=== PATIENT | female | born 1960 | race African-American/Black ===

== ENCOUNTER 2019-10-18 14:21 | Inpatient (IN) | payer OTHER ==
[~2019-10-18] VITALS: Ht 167.6 cm; Wt 78.5 kg
[2019-10-18 17:10] VITALS: BP 133/76
--- NOTE | 2019-10-18 19:39 | NUR ---
58 yo female admitted via EMS after transfer from [facility]. Alert and orientated to person and place, not to time. When asked why she was here during admission intake she stated "for breast implants." She repeated this statement twice. Able to articulate but speech slightly slurred. Calm and cooperative. Able to ambulate without difficulty with regular gait. Denies SI/HI. Breath sounds clear t/o, bilaterally equal. Reg HR auscultated. Color pink with brisk capillary refill and palpable peripheral pulses. Active bowel sounds over soft, rounded abdomen. States last BM was yesterday. Voids independently.Scratches and several bruises on forearms. States they are from her dogs jumping on her. Hortense through admission she held her hands up to her forehead and stated she had a HECTOR. No other s/o of distress or change in affect. States pain is a 9/10. Tylenol given PO per prn order. Continued admission intake without s/o distress. Dr. Urbina and Dr Garnett here, aware of pt admission.
[2019-10-18 20:23] VITALS: BP 106/82
--- NOTE | 2019-10-19 03:52 | NUR ---
patient aox2 forgetful and confused. patient comes to the nurses station multiple times demanding for cigarette.patient reeducated that this is a hospital and no smoking is around, patient offered a smoking patch but patient declines. patient is easily redirectable. patient calm and cooperative with meds and care. patient has a flat affect, poor eye contact, poor grooming and hygiene. patient refused to take a shower after several attempt. patient encouraged fluids.patient in bed asleep at this time breathing regular and unlaboured.
--- NOTE | 2019-10-19 07:00 | NUR ---
Assumed care of patient this am. Patient calm, content and pleasant. Patient ambulates without assistance. Patient takes medications whole with fluids. Patient denies pain. Patient concerned about her phone and shoes. Patients assessment reveals clear breath sounds, active bowel sounds, and s1 s2 heard with auscultation.
--- NOTE | 2019-10-19 10:51 | NUR ---
REECE called Chalo pt's SO [phone], another friend answered the cellphone, this phone number is the pt's cell phone in their possession. She was unable to provide Chalo's number but did take my phone number for Chalo to call back to schedule the family meeting. Sw met with pt to complete the intake assessment. pt believes she is on a trip or a cruise and needs constant redirection and reminders. Pt also signed for her records to be sent from [facility].
--- NOTE | 2019-10-19 12:07 | NUR ---
John called and spoke fallon Isabel and he is unable to drive this far so is willing to help in family meeting via telephone on 10/25 at 2pm. His number [phone].
--- NOTE | 2019-10-19 14:17 | NUR ---
PT OBSERVED AMBULATING AROUND THE H UNIT WITHOUT DIFFICULTY. RN REPORTS STEADY GAIT SINCE ADMISSION. PT APPEARS TO BE MOBILIZING AT BASELINE AND DR. SKELTON PLANS TO D/C P.T. ORDER AT THIS TIME.
[2019-10-19 19:32] VITALS: BP 103/58
--- NOTE | 2019-10-20 01:22 | NUR ---
ASSUMED CARE OF PATIENT AT APPROXIMATELY 1915 ON 10/19/19. AT THE BEGGINING OF SHIFT PATIENT IS ALERT AND ORIENTED X3, SHE WAS CALM AND COOPERATIVE, WALKS WITH A STEADY GAIT APPEARS WITH A BRIGHT AFFECT. AT APPROXIMATELY 2245 PATIENT OBSERVED IN HALLWAYS KNOCKING ON DOORS, STAFF REDIRECTED PATIENT BACK TO HER ROOM. AT APPROXIMATELY 0000 PATIENT OBSERVED WALKING IN THE HALLWAY AND C/O HER DOOR BEING LOCKED. NURSING STAFF ASKED WHY PATIENT IS SHUTTING THE DOOR SHE STATED 'BECAUSE THEY ARE SHOOTING ROUNDS.' SHE APPEARS WITH A PERPLEXED AFFECT AT THIS TIME. AT APPROXIMATELY 0050 PATIENT AGAIN IN HALLWAY MAKING NON SENSICAL STATEMENTS ABOUT NEEDING 'LEO TO COME PICK ME UP, THE BAR IS STILL OPEN.' SHE DENIES SI HI AND HALLUCINATIONS AND DOES NOT APPEAR TO BE RESPONDING TO INTERNAL STIMULI. NURSING WILL MAINTAIN Q12 CHECKS TO ENSURE SAFETY AT ALL TIMES.
--- NOTE | 2019-10-20 08:10 | NUR ---
PT UP WALKING AD REESE WITH STEADY GAIT. PT EATING BREAKFAST. PT DENIES ANY ISSUES OR PAIN. PT LUNGS CLEAR. PT HAS SOME SCRATCHES TO ARMS BILATERALLY. PT STATED HER SKIN IS DRY.
--- NOTE | 2019-10-20 08:22 | NUR ---
PT COMPLIANT WITH MEDICATION.
[2019-10-20 09:09] VITALS: BP 131/89
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
--- NOTE | 2019-10-20 16:45 | NUR ---
PT WANTING TO GO HOME AND TAKE HER DOGS OUT. PT STATED SHE IS GOING HOME AND WANTING TO KNOW HOW TO GET OUT OF HER. PT DIDN'T WANT TO EAT DINNER DUE TO NEEDING TO LEAVE.
--- NOTE | 2019-10-20 17:45 | NUR ---
PT SITTING BY WEST DOOR AND CHECKING DOOR PERIODICALLY.
--- NOTE | 2019-10-20 23:37 | NUR ---
Care assumed of patient at 1915: Patient pacing the halls at start of shift. Patient attempting to open all doors on the unit including exit doors. Patient states that her mother is in a silver car in the parking lot and she needs to go see her. Patient not re-directable at all. Patient decided to sit on the floor next to the exit doors and declined to move. Staff diverted to other exit doors and patient was able to sit where she was comfortable. Patient worried about how she is going to pay for the cup of water provided and medications. Patient was resistive but did take the medication. Patient alert and oriented to person only. Patient curious as to why an RN has decided to work at [facility], which is where she believes she is. Patient re-directed to being in the hospital which she does not believe is accurate. Patient observed scratching bilateral upper extremities. Appears that old scars and newer scabs present. Patient states that she is itching because her skin is dry. Offered lotion which she accepted and applied. Patient declined HS snack. Poor eye contact, suspicious look, flat affect, easily irritable. Denied SI/HI/AH/VH. Denies anxiety or depression. Obvious delusional behaviors of reporting that her mother just left and was returning momentarily to pick her up. Approximately 45 minutes after taking medication, patient approached nurse asking where her room was located. Patient happy, smiling, grateful. Stated her bed was comfortable and that she "loved her new room". Patient then came to the dayroom to watch TV, observed interacting with another peer, looking at a magazine. Patient was able to remember location of her room and retired to bed independently with no further issue to report.
[2019-10-21 09:14] VITALS: BP 111/84
--- NOTE | 2019-10-21 18:26 | NUR ---
States she is sleepy this am. No s/o distress. Alert and orientated to person. Denies pain. Denies SI/HI. Ambulates with steady gait. Breath sounds clear t/o, bilaterally equal. Reg HR auscultated. Color pink with brisk capillary refill. Active bowel sounds over soft, rounded abdomen. Voiding independently. Healing scratches over forearms. Compliant with meds and cares. 1830 One episode late this afternoon where she was exit seeking, pushing on outer doors to get out. Other than that she was calm and cooperative sitting in dining room or sleeping in room. No s/o distress.
[2019-10-21 20:42] VITALS: BP 101/63
--- NOTE | 2019-10-21 23:28 | NUR ---
Care assumed of patient at 1915: Patient seated in dayroom with other peers at start of shift. Patient interacting well with staff and peers. Appears to be watching the TV and writing. Patient alert and oriented to person only. Patient continues to believe that we are staying in a [employer] store. Patient able to be re-directed when she states "oh, that's right, I knew that". However, when asked 5 minutes later, she forgets the accurate answer. Patient calm, pleasant and cooperative. No exit seeking behaviors observed. Patient was able to remember location of her room and bathroom. Patient took HS medication whole without difficulty. Ate 100% HS snack. Continues to have perplexed look when speaking with others. Denies SI/HI/AH/VH. No s/s of delusional or paranoia behaviors. No aggression or agitation observed. Patient was able to retire to her bed, independently, and complete HS ADLs independently.
[2019-10-22 08:31] VITALS: BP 117/79
--- NOTE | 2019-10-22 18:13 | NUR ---
Alert and orientated to person and place. Denies pain/SI/HI. Concerned as to where her belongings are and specifically asks for fan and clothes. Breath sounds clear t/o, bilaterally equal. Reg HR auscultated. Color pink with brisk capillary refill. Voiding independently. Active bowel sounds over soft, rounded abdomen. Healing scratches to forearms. 1800 Spent most of day in dining room with peers or resting in bed. No s/o distress. Received phone call from [facility] late in afternoon.
[2019-10-22 19:49] VITALS: BP 141/82
--- NOTE | 2019-10-23 03:50 | NUR ---
Pt. did spend most of the evening hours in the dining room watching television. She offers no c/o pain or discomfort. No behavioral issues observed this shift. Pt. rested quietly in her room most of the night.
[2019-10-23 08:19] VITALS: BP 117/77
--- NOTE | 2019-10-23 09:59 | NUR ---
0642 REPORT RECEIVED FROM OVERNIGHT SHIFT, PATIENT UP AND SITTING IN DAY ROOM. PATIENT ATE BREAKFAST AND TOOK MEDICATION WITHOUT INCIDENCE. PATIENT PARTICIPATING IN GROUPS, SITTING QUIET AND CALM. WILL CONTINUE TO MONITOR PATIENT FOR BEHAVIORS AND SAFETY.
--- NOTE | 2019-10-23 15:12 | NUR ---
Sw spent 1;1 with this pt during the group time. Pt was eager to talk about her support system and how she wants to go home. She is still moderately unaware of her deficits . She was pleasant and eager to make " chit chat".
[2019-10-23 19:42] VITALS: BP 120/67
--- NOTE | 2019-10-24 04:32 | NUR ---
ASSUMED CARE OF PATIENT AT 1915, ON 10/23/19. SHE WAS IN HER ROOM WITH EYES CLOSED THAT SPONTANEOUSLY OPENED TO THIS NURSES VOICE. SHE APPEARS WITH A BRIGHT AFFECT, CALM AND COOPERATIVE, TOOK MEDICATION WITH NO ISSUES. SHE STATES 'WELL IM FEELING REALLY GOOD THIS EVENING.' SHE DENIED SI HI AND HALLUCINATIONS BUT DOES APPEAR TO STRUGGLE FINDING THE CORRECT WORDS TO USE IN SENTENCES. SHE DENIES MEDICAL CONCERNS WITH NO S/S OF DISTRESS. NURSING WILL MAINTAIN ALL PRECAUTIONS TO ENSURE SAFETY AT ALL TIMES.
[2019-10-24 08:33] VITALS: BP 118/64
--- NOTE | 2019-10-24 09:32 | NUR ---
PT SLEEPING THIS AM. PT DIDN'T WANT TO EAT BREAKFAST. PT STATED SHE DIDN'T WANT ANY. GAVE PT ORANGE JUICE WITH MEDS. PT COMPLIANT WITH MEDS. PT CHEERFUL AND HAPPY.
--- NOTE | 2019-10-24 12:00 | NUR ---
PT OUT TO EAT FOR LUNCH GETTING A CHANCE TO VISIT WITH STAFF AND
--- NOTE | 2019-10-24 18:38 | NUR ---
ADM ZYPREXIA 5MG PO FOR INCREASED ANXIETY. PT REACHING OVER NURSES DOOR AND OPENING THE DOOR. PT GOING INTO OTHERS ROOMS AND TAKING A YELLOW SHIRT AND WAS PUTTING IT ON TOP OF HER YELLOW SHIRT. PT VERBALY AGGRESSIVE TOWARD STAFF.
[2019-10-24 20:10] VITALS: BP 124/79
--- NOTE | 2019-10-25 04:25 | NUR ---
1909-Report received from day shift nurse and care assumed. She had a prn Zyprexa 5 mg. po at 1838 prior to shift report for restlessness, checking exit doors repeatedly and it was effective as she stayed in the day room and hallway and sat down in the day area/less restless. Cindi asked if she could 'time-out' when she overheard staff talking about timing out. She had good eye contact, was medication compliant at medicine time, asked if she could 'pay now', could not locate her room by herself, had a flat affect, was soft-spoken and not aggressive nor irritable. She did not sleep restfully tonite, off and on in her room saying she was straightening her covers. She was noticably confused with restlessness and came out of her room at 0400 looking for her checkbook, then went in another peers room instead of hers. She was given Olanzapine 5 mg. po at 0425 for anxiety, and will monitor for effectiveness.
[2019-10-25 07:32] VITALS: BP 123/93
--- NOTE | 2019-10-25 11:03 | NUR ---
REECE team received a vm from [facility] stating that he would be at the hospital at 1200. REECE called him back and reminded him that that the meeting is not until 1400. He said he wanted to visit pt also. REECE gave him the visiting hours. He said he will be present at 1400. REECE team will continue to follow pt during her stay.
--- NOTE | 2019-10-25 13:15 | NUR ---
CONTINUITY OF CARE OF PATIENT THIS MORNING. SEARCHED FOR PATIENT FOR BREAKFAST AND TO ADMINISTER MEDICATIONS. DISCOVERED HER STANDING IN HER BATHROOM IN THE DARK. UNABLE TO EXPLAIN WHY WHEN QUESTIONED. PATIENT ESCORTED TO DINING PHELAN AND MEDICATIONS ADMINISTERED. TAKEN WELL - NEEDED ENCOURAGEMENT AND DIRECTION WITH BREAKFAST. NO PARTICIPATION IN GROUPS - VERY UNFOCUSED - ALERT BASICALLY TO ONESELF. NEEDS CONSTANT REDIRECTION - WANDERS ABOUT - VERY CONFUSED. CALM AND REDIRECTABLE. ISOLATIVE TO ONESELF - DOES NOT MINGLE IN [place]IE[place]. VERY LITTLE RETENTION OF WHAT IS CONVEYED TO HER.
--- NOTE | 2019-10-25 15:39 | NUR ---
SW and psych doctor met with Fatou Isabel (Chalo's mother), and Mike (pt's son via phone) for a family meeting. They psych doctor discussed pt's cognitive issues and that she lobito suffers from dementia; she is in need of placement. Pt was asked if she knew what a DPOA is. She was too overwhelmed by the news that she needs placement to respond. SW or psych doctor will ask pt tomorrow and screen her for the possibility of her signing DPOA paperwork. SW team will continue to follow pt during her stay on the unit.
--- NOTE | 2019-10-25 16:03 | NUR ---
Pt stated she would like to apply for Medicaid. SW sent an email to [employer] to schedule a screening. SW team will continue to follow pt during her stay on this unit.
[2019-10-25 19:26] VITALS: BP 106/77
--- NOTE | 2019-10-26 06:41 | NUR ---
1909-Report received from day shift nurse and care assumed. She was very restless, pacing fast with confusion, checking doors and nearly pressed the alarm. At 2039 she was given Olanzapine 5 mg. po for anxiety, she was compliant with her HS meds. also. the prn was ineffective. She was verbally hostile at times with her confusion and continued very restless and pacing the hallway. She was redirectable mostly but had insomnia. At 149 the oncall [employer]ADES WORKER was called and Trazodone 50 mg. po x 1 was given and it was effective. She fell asleep soon. Total sleep 3.2 hours thus far.
--- NOTE | 2019-10-26 10:58 | NUR ---
REECE spoke with pt and asked if she remembered the conversation from yesterday. REECE explained to pt that they talked about DPOA. REECE again explained what that meant, and then asked pt to tell her what it means to her. Her response was "someone who can make decisions when I can't." REECE then asked her 4 orientation questions, and she was only oriented to who she was and where she was; she does not know the date, the season we are in, or the current president. REECE will provided an update to the psych doctor.
--- NOTE | 2019-10-26 14:29 | NUR ---
REECE talked with the psych doctor about her findings and he said that guardianship is the next step. REECE contacted pt's son Rob and provided an update he said that he needs to call REECE back because he was with clients at the moment. SW team will continue to follow pt during her stay.
--- NOTE | 2019-10-26 19:30 | NUR ---
Sleepy today. Needed encouragement to get up and go to breakfast and dinner today. Spent approximately 50% of day resting in bed. Rest of time she was in dayroom with peers. Denies SI/HI/pain. Orientated to person and place only. Calm, cooperative and compliant with meds. Breath sounds clear t/o, bilaterally equal. Reg HR auscultated. Color pink with brisk capillary refill. Voids independently. No documented BM since 10/20. When asked, she states that she has not had a BM in 4-5 days. Active bowel sounds over large, rounded abdomen. Ambulates t/o unit without difficulty. 1600 Dr. Garnett notified of lack of BM. Mag Citrate ordered PO. Drank approximately .25-.5 of bottle without any results as of 1829. Refused remainder. No s/o distress. Will obtain labs in AM per order.
[2019-10-26 19:38] VITALS: BP 109/63
--- NOTE | 2019-10-27 03:17 | NUR ---
ASSUMED CARE OF PATIENT ON 10/26/19 AT 1915. PATIENT IS IN ROOM UPON ONE TO ONE ASSESSMENT. SHE APPEARED WITH A BRIGHT AFFECT, ASKED HOW MY DAY WAS GOING AND WAS CALM AND COOPERATIVE. SHE DOES REPORT FEELING A 'LITTLE DEPRESSED' BUT NEITHER AFFECT AND MOOD APPEAR CONGRUENT. SHE DENIES FEELINGS OF SI HI AND HALLUCINATIONS AT THIS TIME. SHE DID NOT REPORT ANY MEDICAL CONCERNS WITH NO S/S OF DISTRESS. NURSING WILL MAINTAIN ALL PRECAUTIONS TO ENSURE SAFETY AT ALL TIMES.
[2019-10-27 06:48] LABS: HEMATOCRIT 38.6 % (37.0-47.0); HEMOGLOBIN 12.9 gm/dL (12.0-15.0); MCHC 33.4 g/dL (28.0-37.0); MCV 89.8 fL (80.0-100.0); RBC 4.31 mil/uL (4.20-5.00); RDW 13.9 % (10.5-14.5); WBC 4.7 thou/uL (4.0-11.0)
[2019-10-27 06:51] LABS: CALCIUM 9.7 mg/dL (8.5-10.1); CREATININE 0.6 mg/dL (0.6-1.0); MAGNESIUM 2.5 mg/dL (1.8-2.4); POTASSIUM 4.1 mmol/L (3.5-5.1)
[2019-10-27 08:00] VITALS: BP 135/72
--- NOTE | 2019-10-27 10:24 | NUR ---
Pt is not achieving current goal of attending two RT groups per day until discharge to increase concentration and communication skills. The modified New goal plan is to attend one RT group per day until discharge to increase reality orientation and activity tolerance.
[2019-10-27 13:14] VITALS: BP 135/72
--- NOTE | 2019-10-27 16:25 | NUR ---
Yesterday Tonya, pt's daughter, contacted REECE and requested an update. REECE explained that she has to get permission from her mother to do so. REECE obtained the permission to tell Tonya what is going on verbally from pt. REECE provided Tonya and updated and explained guardianship will be needed due to pt not having the ability to sign DPOA paperwork. Tonya said she has already been talking to a patient access director. She does not believe her brother Rob would be a good option for guardian because she states pt lives down the street from him and he never visits. REECE explained that the psych doctor may have to ask the state to step in if no one wants to take responsibility for pt. Tonya said she does, she is concerned about her financial responsibility. REECE advised she speak with her patient access director. She said she will do so and get back with REECE by Friday noon. REECE provided this update to the psych doctor. SW team will continue to follow pt during her stay on this unit.
--- NOTE | 2019-10-27 16:38 | NUR ---
)700 Assumed care of the pateitn. Pleasant and cooperative. Able to walk around the unit. Forgets her rooms sometimes. Reorientation done. Compliant with her meals and medications. Will continue to monitor.
[2019-10-27 19:22] VITALS: BP 118/73
--- NOTE | 2019-10-28 02:26 | NUR ---
ASSUMED CARE FROM DAY SHIFT, PT SITTING AT TABLE IN DAYROOM, CALM COOPERATIVE , ANSWERING QUESTION WITHOUT CONFUSION OR AGITATION. HS MEDICATION TAKEN WITH SNACK, TOLERATED WELL. PT THEN WALKED TO ROOM GAIT STAEDY A,D PT SOON FELL ASLEEP. BED ALARM ON FOR SAFETY AND FREQ CHECKS, WILL CONINTUE TO FOLLOW CURRENT PLAN OF CARE AND WILL [id number] CHANGES OR ABNORMAL FINDINGS.
[2019-10-28 09:07] VITALS: BP 146/78
--- NOTE | 2019-10-28 11:53 | NUR ---
Nutrition: Assessed due to LOS on [facility] unit. Pt was not available at time of visit to unit. In a provider meeting per discussion with staff. Pt is on a regular diet, eating very well. Meal average = 74% since Thursday 10/25. Only 1 out of her last 10 meals refused. Daily supplement ordered (none specified), but pt has not consumed, or it was not documented the last 2 days. Prior to this drinking 50-100% of HS supplement. No weight hx available in EMR the last few years. Weight at 163# places BMI just slightly overweight at 26.3 kg/m2. Given consistent sufficient po trends, will keep as low nutrition risk. No added interventions indicated at this time.
--- NOTE | 2019-10-28 13:14 | NUR ---
0715 Lying in bed without s/o distress. Orientated to person and place. Denies SI/HI, pain. States she had a bowel movement yesterday that was brown and formed. Denies other concerns. Breath sounds clear t/o, bilaterally equal. Reg HR auscultated. Color pink with brisk capillary refill and palpable peripheral pulses. Independent with voiding. Active bowel sounds over soft, rounded abdomen. Healing scratches on forearms. 1300 Up ambulating t/o unit without s/o distress. Appears drowsy at times putting head on table. At other times she is watching TV.
[2019-10-28 19:45] VITALS: BP 108/75
--- NOTE | 2019-10-29 01:32 | NUR ---
Care assumed of patient at 1915: Patient seated in dayroom at start of shift. Patient alert and oriented to person. Patient confused and forgetful. Patient seated at a table interacting with 3 other female peers. Patient denies SI/HI/AH/VH. No s/s of delusional or paranoia behaviors. No exit seeking behaviors observed. Patient did ask where her "badge" was at one point. Patient re-directed that she did not require a badge and she was satisfied with that response. Took HS medication whole without difficulty. Ate 100% HS snack. Patient calm, pleasant and cooperative. Presents with perplexed and blunted affect at times. Patient reported she was tired later in the evening. Patient shown to her room which she was very excited about. Patient acted as though she hadn't seen her room before. Patient was able to use the restroom and go to bed without difficulties. Patient has been resting quietly since.
[2019-10-29 08:14] VITALS: BP 148/77
--- NOTE | 2019-10-29 17:11 | NUR ---
REECE spoke with pt's son Rob. He asked SW to explain again why DPOA paperwork was not signed by pt. SW explained that she was not oriented so therefore that would not be a valid signature. He asked if he had DPOA paperwork and caught her at a good moment could he have her sign. REECE explained that a notary will ask her for orientation too. Rob said he is worried about a 3500 guardianship fee the patent prosecution attorney will charge. REECE explained that his sister saying the fee was 3500 was the only time she has ever heard that; she mostly hears of fees between $[phone]. Rob said ok. He said he will put a call into his patent prosecution attorney and asks to give him unitl noon Friday to reach him. 1700 REECE confirmed with Rob that he did leave a vm for his patent prosecution attorney and expects to hear from him Friday morning. REECE provided an update to the psych doctor. SW team will continue to follow pt during her stay on this unit.
--- NOTE | 2019-10-29 18:16 | NUR ---
ASSUMED CARE OF PATIENT AT 0715 ON 10/29/19. AT 0730 AM, PATIENT SLEEPING AT 0800 AM PATIENT TO DAYROOM FOR BREAKFAST. COMMUNICATES WELL WITH OTHERS NO COMPLAINTS OF PAIN, DENIES SI/HI AND AVH. AFTER BREAKFST SITS ON COUCH TO WATCH TV.
--- NOTE | 2019-10-29 18:33 | NUR ---
AT 1800 PATIENT LYING DOWN ON COUCH IN DAYROOM WATCHING TV. DENIES PAIN OR NEEDS AT THIS TIME.
[2019-10-29 20:07] VITALS: BP 132/90
--- NOTE | 2019-10-30 01:57 | NUR ---
PATIENT HAS BEEN IN BED MOST OF SHIFT. PT IS COOPERATIVE AND DID TAKE HER MEDS. PATIENT SLEEPING WELL. BED IN LOW POSITION AND BED ALARM ON.
[2019-10-30 07:35] VITALS: BP 174/97
--- NOTE | 2019-10-30 09:30 | NUR ---
PT ATE BREAKFAST THIS AM. PT TOOK MEDS WITHOUT ANY ISSUES. PT DENIES ANY PAIN. PT REFUSED A SHOWER THIS AM. PT ALSO REFUSED LAXATIVE, PT LAST BM REPORTED 10/27. PT UP AD REESE. PT CHEERFUL THIS AM AND SOCIAL, PT SMILES AT STAFF.
--- NOTE | 2019-10-30 18:24 | NUR ---
PT HAS BEEN CALM AND COOROPATIVE DURING THE DAY. PT RESTED ON COUCH DURING GROUP.
[2019-10-30 19:44] VITALS: BP 145/90
--- NOTE | 2019-10-31 04:50 | NUR ---
patient aox2 confused and forgetful. patient was calm and cooperative with meds and care. patient encouraged fluids. patient denied all psych issues. patient had a flat affect, poor eye contact, fair grooming and hygiene. patient in bed asleep at this time breathing regular and unlaboured.
[2019-10-31 05:11] LABS: ABSOLUTE NEUTROPHILS 2.9 thou/uL (1.4-8.2); BASOPHILS 0.6 % (0.0-2.0); EOSINOPHILS 1.8 % (0.0-3.0); HEMATOCRIT 40.1 % (37.0-47.0); HEMOGLOBIN 13.4 gm/dL (12.0-15.0); LYMPHOCYTES 39.3 % (24.0-44.0); MCHC 33.5 g/dL (28.0-37.0); MCV 89.4 fL (80.0-100.0); MONOCYTES 7.1 % (1.0-8.0); PLATELET COUNT 186 thou/uL (150-400); POLYS 51.2 % (36.0-66.0); RBC 4.49 mil/uL (4.20-5.00); RDW 13.9 % (10.5-14.5); WBC 5.7 thou/uL (4.0-11.0)
[2019-10-31 05:15] LABS: CALCIUM 10.1 mg/dL (8.5-10.1); CREATININE 0.6 mg/dL (0.6-1.0); POTASSIUM 4.1 mmol/L (3.5-5.1)
[2019-10-31 09:27] VITALS: BP 125/64
--- NOTE | 2019-10-31 12:23 | NUR ---
Date of Admission: 10/18/19 Date of Activity Therapy Assessment: 10/21/2019 Activity Goal: one group per day Initial Goal: Pt will attend one recreation therapy group per day, until discharge, to increase reality orientation and activity tolerance. Weekly progress towards goal: Did not achieve Group participation level: Moderate participation when present. Behaviors observed: Enjoys pet therapy and responded well to social ques when dog was present. Pt struggles to focus on tasks and does not do well in groups due to needing more 1:1 attention and direction. Plan: Offer 1:1
--- NOTE | 2019-10-31 14:01 | NUR ---
Has been up and down alot today, she refused to get up for breakfast, was explained that this is part of the program she has to follow, getting up, clean, dressed and participate in meals and groups, she verbalized understanding and was up for lunch, she is compliant with meds, she denies SIHI and AVH, she is alert and oriented x 1, continue to monitor for safety and behaviors.
[2019-10-31 20:33] VITALS: BP 140/77
[2019-11-01] VITALS (7 sets, daily range): BP systolic 93–141; BP diastolic 43–81
--- NOTE | 2019-11-01 02:03 | NUR ---
ASSUMED CARE FROM DAY SHIFT PT SITTING IN DAYROOM WATCHING TV APPERS CALM AND COOPRATIVE WHEN I SAT AND TALK WITH PT, NO CONCERNS VOICED. HS MEDICATONS TAKEN WITH SNACK AND TOLERATED WELL. PT STATES SHE DONT REMEMBER WHEN LAST HAD BOWEL MOVEMENT, BUT 10/27/19 IS WHEN LAST CHARTED. PT RESTED WELL THROUGHOUT FREQ ROUNDING. WILL CONINTUE WITH CURRENT PLAN OF CARE AND WILL REPORT CHANGES OR ABNORMAL FINDINGS.
--- NOTE | 2019-11-01 12:46 | NUR ---
REECE contacted pt's son Rob and asked if he had heard from his etl developer yet. He said he has not. REECE explained then that she must begin the process of asking the state to be his mother's guardian. He said he understood and if he can do something after speaking to his etl developer he will. REECE contacted pt's daughter Tonya at [phone] and provided her an update. She also gave SW her contact information to add to the questionnaire for guardianship. REECE contacted Chalo. No answer. [place] [facility] asking for a return call. REECE team will continue to follow pt during her stay on this unit.
--- NOTE | 2019-11-01 16:27 | NUR ---
REECE asked pt's nursing team if this pt and another pt who will be on the unit would be good roommates, and this pt's nurse said yes. REECE spoke with this pt and her prospective new roommate; both agreed they would like to room together. SW team provided an update to pt's nursing team.
--- NOTE | 2019-11-01 19:48 | NUR ---
Lying supine in bed, sleepy. Arouses easily. Alert to person and place but not to time, situation. Denies SI/HI/pain. Breath sounds clear t/o, bilaterally equal. Slightly irregular HR auscultated. Color pink with brisk capillary refill and palpable peripheral pulses. Independent with voiding. Active bowel sounds over soft, rounded abdomen. 0930 Refusing to come out to breakfast. States she doesn't feel well and has abdominal pain. When asked to describe she said it was around her belly button. After 20 min she came out to dining room and was compliant with meds. BP low 90s systolically even after repeat. Laid down on couch and was watching TV. Orthostatic BP done. States abdominal pain gone. [address] Garnett and Dr. Singh about BPs, no documented BM since 10/27/19, abdominal pain. Dr. Garnett adjusting meds and Dr. Singh ordered prn suppository and enema. 1300 Currently participating in group. Will give suppository when done. Up ambulating in unit without s/o distress. audio visual director stated she received call from quill picking machine operator stating they had received a call from a Cindi Santos/Adelso. Room searched for phone without success. When questioned about phone pt could not remember if she had a phone and was willing to be searched. When phone number called it went to voicemail. 1700 When went to give suppository pt stated she had just had BM and describe a 3 inch soft brown stool. Suppository given, no stool palpated in rectum. Very small soft brown stool produced from suppository. No s/o distress. 1845 Up in day room without s/o distress.
--- NOTE | 2019-11-02 02:38 | NUR ---
ASSUMED CARE OF THIS PATIENT AT 1900 FOR CLAIMS SPECIALIST. CALM AND COOPERATIVE WITH ASSESSMENT PROCESS AND ALL CARES AND MEDS. NO ANGER OR BEHAVIOR ISSUES THIS EVENING. NO PHYSICAL C/O. NO APPARENT DISTRESS. WILL CONTINUE TO MONITOR
--- NOTE | 2019-11-02 12:39 | NUR ---
AT 0710 ASSUMED CARE OF PATIENT ON 11/02/19. PATIENT SLEEPING IN BED WITH EYES CLOSED AT 0715. WHILE IN THE ROOM PATIENT WAKES UP, IT FIELD TECHNICIAN ASKS PATIENT IF COMING TO DAYROOM FOR BREAKFAST PATIENT RESPONDS SAYING "NO I AM NOT EATING BREAKFAST" AFTER TALKING TO PATIENT SHE CONTINUES TO REFUSE BREAKFAST. IT FIELD TECHNICIAN WILL CONTINUE TO OBSERVE PATIENT.
[2019-11-02 15:07] VITALS: BP 147/77
--- NOTE | 2019-11-02 17:02 | NUR ---
REECE spoke with pt's partner Chalo in her presence. SW explained that she needs more info for the guardianship questionnaire. Chalo provided SW information about the property she owns and the ages of her children. He cannot at this time remember the phone number of her mother. REECE faxed a questionnaire doc to Rachell Maya with [employer], and also sent her an email explaining she had done so. REECE will continue to follow pt during her stay on this unit.
[2019-11-02 20:08] VITALS: BP 113/66
--- NOTE | 2019-11-03 03:35 | NUR ---
ASSUMED CARE OF THIS PATIENT AT 1900. HAS BEEN IN BED THE ENTIRE SHIFT, EXCEPT GETTING UP TO TOILET. STATES SHE IS HAVING TROUBLE SLEEPING. PLEASANT AND COOPERATIVE WITH ASSESSMENT PROCESS, AND ALL MEDS AND CARES. NO APPARENT DISTRESS. NO C/O. WILL CONTINUE TO MONITOR
--- NOTE | 2019-11-03 07:30 | NUR ---
ASSUMED CARE OF PATIENT THIS AM. PATIENT IN HER ROOM. PATIENT DENIES PAIN. PATIENT AMBULATES WITHOUT ASSISTANCE. PATIENTS AFFECT SOFT AND RELAXED. PATIENT TAKES MEDICATIONS WHOLE WITH THIN FLUIDS. PATIENTS ASSESSMENT SHOWS CLEAR BREATH SOUNDS, ACTIVE BOWEL SOUNDS, AND S1 S2 HEARD WITH AUSCULTATION.
[2019-11-03 08:57] VITALS: BP 113/58
[2019-11-03 19:14] VITALS: BP 112/80
--- NOTE | 2019-11-04 03:39 | NUR ---
TOOK OVER CARE OF THIS PATIENT AT 1920. PATIENT ALERT AND ORIENTED X4. UP AD REESE AND GOES FROM ROOM TO BIG ROOM. PATIENT WAS CALM AND COOPERATIVE THIS SHIFT. DENIES PAIN. SLEPT MOST OF THE NIGHT. TOOK MEDS WITH NO PROBLEMS. NO SIGN OF AGGRESSION NOTED.
--- NOTE | 2019-11-04 07:30 | NUR ---
Assumed care of patient this am. Patient resting quietly in her bed. Patient denies pain. Patient is ambulatory and takes medications whole with thin fluids. Patients affect is soft and happy. Patients assessment shows clear breath sounds, active bowel sounds, and s1 s2 heard with auscultation.
[2019-11-04 08:37] VITALS: BP 99/77
[2019-11-04 08:38] VITALS: BP 99/77
--- NOTE | 2019-11-04 10:52 | NUR ---
Nutrition: Seen for follow up this AM. Sleeping on couch, but awoke for RD. Pt is eating 2 good meals/day often at 80-100% or 100% of at least 2 daily meals. Tends to refuse 1 meal a day here or there. Pt reports she typically doesn't eat 3 meals/day so this is her baseline. Overall, even with a few refusals, still consuming an average of > 2/3 of meals. Is within 1.5# of wt from 2 weeks ago. 10/18: 163.3# 10/30: 161.7# Encouraged adequate protein at meals and reviewed protein foods. Denied need for meal changes. Suggested peanut butter w/ crackers for PM snack. Low risk.
[2019-11-04 19:44] VITALS: BP 105/63
--- NOTE | 2019-11-05 03:46 | NUR ---
ASSUMED CARE OF PATIENT AT 1915, ON 11/04/19. UPON ONE TO ONE WITH PATIENT SHE IS IN BED WITH EYES OPEN. SHE APPEARS WITH A BRIGHT AFFECT, RESPONDS TO QUESTIONS SOMEWHAT IN A NON SENSICAL MANNER, BUT LAUGHS AFTER EVERY STATEMENT. SHE IS CALM AND COOPERATIVE, DENIES SI HI AND HALLUCINATIONS AND DOES NOT APPEAR TO BE RESPONDING TO ANY STIMULI. SHE DENIES MEDICAL CONCERNS WITH NO S/S OF DISTRESS. NURSING WILL MAINTAIN ALL PRECAUTIONS TO ENSURE SAFETY AT ALL TIMES.
--- NOTE | 2019-11-05 09:46 | NUR ---
PT IN BED. PT STATED SHE DIDN'T WANT TO EAT BREAKFAST THIS AM. GAVE MEDS AT BEDSIDE WITH ORANGE JUICE. PT DIDN'T HAVE A GOAL TODAY.
[2019-11-05 10:26] VITALS: BP 112/54
--- NOTE | 2019-11-05 10:30 | NUR ---
PT CAME OUT OF ROOM AND INTO DINING ROOM.
--- NOTE | 2019-11-05 10:34 | NUR ---
John sent Dr Letter for the Guardianship fax to Mina Maya [phone]. John emailed [facility] and [facility] team regarding this.
--- NOTE | 2019-11-05 12:00 | NUR ---
PT DID EAT LUNCH IN DINING ROOM. PT TALKING WITH OTHER RESIDENTS.
--- NOTE | 2019-11-05 13:09 | NUR ---
PT RESTING ON COUCH IN DINING ROOM.
[2019-11-05 19:56] VITALS: BP 122/70
--- NOTE | 2019-11-06 03:28 | NUR ---
ASSUMED CARE OF PATIENT AT 1915 ON 11/05/19. THIS OBSERVED PATIENT BRIEFLY IN THE DAY ROOM WITH A PERPLEXED AFFECT. SHE THEN WENT TO HER ROOM AND LAYED DOWN. THIS NURSE OBSERVED PATIENT SMILING AT THIS NURSE APPEARED WITH A BRIGHT AFFECT AND WAS ABLE TO HAVE A LIGHT CONVERSATION. SHE REPORTS THAT SHE IS 'SLEEPY' AND WANTS TO 'REST AND RELAX.' SHE DENIED SI HI WELL HALLUCINATIONS. SHE DID NOT REPORT MEDICAL CONCERNS WITH NO S/S OF DISTRESS. NURSING WILL MAINTAIN ALL PRECAUTIONS TO ENSURE SAFETY AT ALL TIMES.
[2019-11-06 07:20] VITALS: BP 129/69
--- NOTE | 2019-11-06 10:38 | NUR ---
HAS BEEN VISISBLE IN DAYROOM FOR SCHEDULED GROUPS AND MEALS-WILL RETURN TO ROOM OR LIE ON COUCH DURING UNSTRUCTURED TIME AND DOES C/O FEELING "A LITTLE SLEEPY" SPEECH CLEAR AND CONVERSATION GOAL DIRECTED-RESPONSES R/T TOPIC BEING DISCUSSED-IS VAGUE AT TIMES AND UNSURE OF DATE-AWARE SHE IS IN HOSPITAL. LITTLE NOTED INTERACTION WITH PEERS. AFFECT CONSTRICTED. GAIT STEADY WITHOUT ASSISTIVE DEVICES-DENIES PAIN.
--- NOTE | 2019-11-06 17:09 | NUR ---
Date of Admission: 10/18/19 Date of Activity Therapy Assessment: 10/21/2019 Activity Goal: one group per day Initial Goal: Pt will attend one RT group per day until discharge to increase reality orientation and activity tolerance. Weekly progress towards goal: On track when groups offered Group participation level: Moderate when present Behaviors observed: Quiet and reserved. Dioriented at times. Plan: No change towards goal
[2019-11-06 21:07] VITALS: BP 125/73
--- NOTE | 2019-11-07 02:49 | NUR ---
ASSUMED CARE OF PATIENT AT APPROXIMATELY 1915 ON 11/06/2019. AT THE BEGINNING OF THE SHIT THE PATIENT WAS IRRITABLE WITH DISTURBING HER WHILE SHE WAS SLEEPING 'JUST TO SAY HI.' THIS NURSE REORIENTED PATIENT AND PATIENT STATED 'OH IM SORRY.' AND BECAME PLEASANT AND HAD A BRIGHT SMILE. SHE DOES SOMEWHAT APPEAR TIRE IN FACIAL AND BODY EXPRESSION. SHE DENIES SI HI HALLUCINATIONS. SHE DENIES MEDICAL CONCERNS WITH NO S/S OF DISTRESS NURSING WILL MAINTAIN ALL PRECAUTINOS TO ENSURE SAFETY AT ALL TIMES
--- NOTE | 2019-11-07 08:38 | NUR ---
REECE received a vm from Rob Daniels in regards to pt. REECE returned call. No answer. Lft msg. REECE team will continue to follow pt during her stay on this unit.
[2019-11-07 09:09] VITALS: BP 138/73
--- NOTE | 2019-11-07 10:05 | NUR ---
0645 Resummed care from overnight shift, patient this morning very tired and slept until breakfast was almost over. Patient got up and ate took medication without incidence. Patient did participate in groups, cooperative, calm will continue to monitor patient for safety andd behaviors.
--- NOTE | 2019-11-07 12:48 | NUR ---
REECE received a call from Rob Daniels stating that he did get in contact with his prosecuting attorney and does plan to file for guardianship. REECE explained she has submitted information for a petition to the hospital attorneys. He said he knew because [facility] has reached out to him. REECE asked him to keep her posted on progress and that she will continue on with her actions until the hospital attorneys advise her not to. Rob said he understands. SW team will continue to follow pt during her stay on this unit.
[2019-11-07 19:45] VITALS: BP 102/50
--- NOTE | 2019-11-08 00:54 | NUR ---
ASSUMED CARE ON 11/07/19 @ 19:15, IN THE DAY ROOM SITTING AT A TABLE SOCIALIZING WITH PEERS AND WATCHING TV. COOPERAED WITH ASSESSMENT, ORIENTED TO PERSON ONLY. DENIES ANXIETY AND DEPRESSION, SI/HI, AVH. REPORTS ONLY GENERAL PAIN, CONFUSION NOTED, PLEASANT AFFECT NOTED. AMBULATES WITHOUT A WALKER. AFTER TAKING MEDICATIONS WHOLE WITH WATER, RETIRED AND AT THIS WRITING IS NOTED TO BE IN BED WITH EYES CLOSED AND RESPIRATIONS EVEN AND UNLABORED. LAST REPORTED BM IS 11/07/19. BED IN LOW POSITION, WILL CONTINUE TO MONITOR Q 12 MINUTES AND ALL PATIENT SAFETY IS OBSERVED.
--- NOTE | 2019-11-08 06:08 | NUR ---
SLEPT 9 HOURS OVERNIGHT
[2019-11-08 08:58] VITALS: BP 138/92
--- NOTE | 2019-11-08 15:06 | NUR ---
0710 ASSUMED CARE OF PATIENT ON 11/08/19. PATIENT IN BED WITH EYES CLOSED. PATIENT TO DAYROOM FOR BREAKFAST, SITTING AT TABLE WITH OTHER PEERS SOCIALIZING WELL WITH OTHERS. MEDS TAKEN WHOLE WITHOUT DIFFICULTY. ASSESSMENT COMPLETED IN PATIENTS ROOM. NO COMPLAINTS OF PAIN. DENIES SI/HI AND AVH. PATIENT STATES GOAL FOR TODAY IS TO GET NEWS OF GOING HOME. PATIENT NOTED WITH A FLAT AFFECT. DENIES NEEDS. PATIENT AMBULATES AD REESE. BACK TO DAYROOM AT THIS TIME 1010 AM.
[2019-11-08 19:32] VITALS: BP 110/74
--- NOTE | 2019-11-09 05:38 | NUR ---
PT CALM ET COOPERATIVE THIS SHIFT. PT AMBULATES HALLS AD REESE. PT RESTING IN BED WITH EYES CLOSED MOST OF SHIFT. TOOK MEDICATIONS WITHOUT DIFFICULTIES. NO C/O VOICED THIS SHIFT. WILL CONTINUE TO MONITOR PER PROTOCOL.
[2019-11-09 09:46] VITALS: BP 105/55
--- NOTE | 2019-11-09 17:00 | NUR ---
ASSUMED CARE OF PATIENT A5T 0720 ON 11/09/19 PATIENT IN BED AT 0715 WITH EYES CLOSED. AT 0735 PATIENT STATES SHE DOES NOT WANT BREAKFAST AND WILL STAY IN ROOM. DENIES PAIN, SI/HI AND AVH. A & O X4. PATIENT HAS A FLAT AFFECT WHEN TALKING TO HER. PATIENT STATES CONCERN ABOUT NOT BEING ABLE TO GO HOME. PATIENT GOAL FOR THE DAY IS TO BE ABLE TO GO HOME. 0800 PATIENT IN DAY ROOM WATCHING TV WAITING FOR BREAKFAST. 0915 PATIENT ATTENDS RECREATIONAL GROUP, AFTER GROUP PATIENT LAYS ON COUCH TO WATCH TV. PATIENT OUT TO DAYROOM FOR LUNCH CONTINUES TO DENY NEEDS. LOOKS UNHAPPY OR SAD BUT WHEN ASKED TO SMILE PATIENT SMILES THEN RETURNS TO A SAD FACE. PATIENT CALM AND COOPERATIVE.
--- NOTE | 2019-11-09 17:49 | NUR ---
REECE received a VM from Tonya. REECE returned her call. No answer. Mailbox is full and cannot accept messages.
[2019-11-09 19:41] VITALS: BP 116/68
--- NOTE | 2019-11-10 03:19 | NUR ---
PT ISOLATING IN HER ROOM AT START OF SHIFT. RELAXED AND COOPERATIVE WITH ASSESSMENT. LOOKING FORWARD TO POSSIBLE DC SOON. SPONTANEOUS AND ANIMATED, BUT REMAINED IN ROOM ALL EVENING. TOOK HS MEDS WHOLE W/O PROBLEM, AND HAS SLEPT WELL THROUGH THE NIGHT TO THIS POINT IN THE AM.
[2019-11-10 09:26] VITALS: BP 118/80
--- NOTE | 2019-11-10 13:59 | NUR ---
Lying supine in bed without s/o distress. Calm and cooperative. Denies pain, SI/HI. Responds to name and is able to state she is in the behavioural unit but doesn't know correct day. Breath sounds clear t/o, bilaterally equal. Reg HR auscultated. Color pink with brisk capillary refill and palpable peripheral pulses. Independent with voiding. States she had a bowel movement yesterday. Active bowel sounds over soft, rounded abdomen. Up ambulating in halls without s/o distress. Out to day room for meals. Likes to stay in room when there are no activities.
--- NOTE | 2019-11-10 14:57 | NUR ---
REECE again contacted Tonya albrecht's daughter. She wanted to know any updates. REECE informed her that a petition for guardianship has been filed. She asked if it was too late for her to be involved. REECE told her it is not too late but if her and her brother want to be guardians they need to get a laywer and start working on it. She asked if there were any field investigator that did guardianship for under 1500. REECE told her she did not know of any. She gave REECE her gmother Pricila's address. Reece team will continue to follow trena duirng her stay.
--- NOTE | 2019-11-10 18:02 | NUR ---
REECE faxed signed petition to Fatou Maya with [employer]. REECE team will continue to follow pt during her stay on this unit.
[2019-11-10 19:34] VITALS: BP 108/73
--- NOTE | 2019-11-11 04:44 | NUR ---
PT CALM ET COOPERATIVE THIS SHIFT. PT AMBULATES HALLS AD REESE WITH STEADY GAIT. PT TOOK MEDS WHOLE WITHOUT DIFFICULTY THIS SHIFT. PT CURRENTLY RESTING IN BED WITH EYES CLOSED. WILL CONTINUE TO MONITOR PER PROTOCOL.
[2019-11-11 09:18] VITALS: BP 120/74
--- NOTE | 2019-11-11 11:40 | NUR ---
Nutrition: Seen for weekly follow up. Visited w/ pt in room. She awoke for questions. Guardianship process in progress. Pt denies any new nutrition concerns, questions or needs. Agrees PO intake is going well. Eating a variety of food groups. Meal average= 74% over the last 6 days (per 18 meals) vs 83% average in the last 3 days. Weights incredibly stable near ~163# from 10/18/19 - 11/06/19. Remains on vitamin B12 and folic acid supplements, with weekly ergocalciferol. Also on a scheduled bowel regimen. Last BM date unknown. Keep as low nutrition risk.
[2019-11-11 13:30] VITALS: BP 90/50
[2019-11-11 13:32] VITALS: BP 93/54
--- NOTE | 2019-11-11 16:32 | NUR ---
REECE received an email from Fatou Maya asking for pts neuropsych report. REECE faxed this report to [phone]. SW team will continue to follow pt during her stay on this unit.
--- NOTE | 2019-11-11 16:34 | NUR ---
0730 Lying supine in bed without s/o distress. Alert and orientated x 2. Denies pain, SI/HI. Ambulates without diff t/o unit with reg gait. Breath sounds clear t/o, bilaterally equal. Reg HR auscultated. Color pink with brisk capillary refill and palpable peripheral pulses. Voiding independently. Active bowel sounds over soft, rounded abdomen. States last BM was 2 days ago, last documented was on 11/07. 1430 Refused to go to group d/t she didn't feel good. Except for meals spending most of time in bed. States she has a headache 8/10 and abdominal pain that feels like pressure in RLQ. BP 90-93 systolic with brisk capillary refill and palpable peripheral pulses. Tylenol given for pain and ducolax supp given for constipation. Dr. Urbina here evaluating pt. 1630 Continues to sleep in room without s/o distress. States she feels fine but then states HECTOR a 7/10. States she had a medium formed yellow stool.
[2019-11-11 19:24] VITALS: BP 106/51
--- NOTE | 2019-11-12 03:56 | NUR ---
Pt calm et cooperative this shift. Pt isolating in room et does not frequently socialize with peers. Pt took meds whole without difficulty. Pt ambulates halls ad luther with steady gait. No behaviors noted this shift. All health assessments WNL. Currently resting in bed with eyes closed. Will continue to monitor per protocol.
--- NOTE | 2019-11-12 11:21 | NUR ---
REECE received a phone call from document review attorney Tonya Nye stating that she talked with [facility] court house about court house and the only dates they had availble are January 16 and January 23 @1330. She said that she will attempt to get an earlier court date, but this [facility] tends to have a longer time frame for court dates. REECE told Tonya if January 16 is the earliest she will take that date. Tonya said she will attempt to get a sooner date. REECE notified treatment team.
--- NOTE | 2019-11-12 11:22 | NUR ---
0645 RESUMMED CARE FROM OVERNIGHT SHIFT, PATIENT UP IN DAY ROOM INTERACTING WITH OTHER PATIENTS. PATIENT ATE BREAKFAST AND TOOK MEDICATION WITHOUT INCIDENCE. PATIENT IS LESS INTRUSIVE AND ANXIOUS, WANTS TO KNOW WHEN SHE CAN GO HOME. DR SKELTON PLACED AN ORDER FOR PATIENT TO HAVE ONLY 2 PHONE CALLS PER DAY. WILL CONTINUE TO MONITOR PATIENT FOR BEHAVIORS AND FOR SAFETY.
--- NOTE | 2019-11-12 15:33 | NUR ---
0645 RESUMMED CARE FROM OVERNIGHT SHIFT, PATIENT STILL IN BED THIS AM HAD TO MAKE PATIENT GET UP FOR BREAKFAST AND MEDICATION. PATIENT STATED SHE DID NOT FEEL GOOD HAS A COLD AND WANTED TO REST. I ALLOWED PATIENT TO REST IN ROOM FOR MOST OF THE MORNING. PATIENT COOPERATIVE CALM WILL CONTINUE TO MONITOR FOR SAFETY AND BEHAVIORS.
[2019-11-12 20:00] VITALS: BP 117/61
--- NOTE | 2019-11-13 02:15 | NUR ---
ASSUMED CARE FROM DAY SHIFT, PT C/O THAT SHE FEEL LIKE SHE CATCHING A COLD AND WANTED TO JUST REST IN BED . NO OTHER CONCERNS VOICED AT THIS TIME, PO MEDICATION TAKEN , REFUSED HS SNACK. FREQ CHECK THROUGHOUT THE NIGHT, PT SLEEPING QUIETLY, NO CHANGES NOTED. WILL REPORT CHANGES OR ABNORMAL FINDINGS.
[2019-11-13 08:19] VITALS: BP 113/80
--- NOTE | 2019-11-13 10:37 | NUR ---
Lying supine in bed, awakens easily. States she is fine, just tired. Alert and orientated to person and place. Denies SI/HI, pain. Ambulates with regular gait. Breath sounds clear t/o, bilaterally equal. Reg HR auscultated. Color pink with brisk capillary refill and palpable peripheral pulses. Voiding independently. Active bowel sounds over soft, rounded abdomen. Ate breakfast but then went back to bed.
[2019-11-13 19:05] VITALS: BP 105/60
--- NOTE | 2019-11-14 02:55 | NUR ---
ASSUMED CARE FROM DAY SHIFT PT SITTING IN DAY ROOM WATCHING TV, NO CONCERS VOICED WHEN ASSESSED, PT ATE HS SNACK AND TOOK PO MEDICATION . PT RESTING WELL THROUGHOUT FREQ ROUNDING,. WILL CONITINUE WITH CURRENT PLAN OF CARE AND WILL REPORT CHANGES OR ABNORMAL FINDINGS.
[2019-11-14 07:50] VITALS: BP 113/68
--- NOTE | 2019-11-14 08:07 | NUR ---
ASSUMED CARE OF PT AT 0715. PT IS A&OX3. IS CALM & APPROPRIATE & SMILING. DENIES PAIN & CONCERNS AT THIS TIME. PT IS STABLE. FALL PRECATUIONS & FREQUENT MONITORING CONTINUED THIS SHIFT. PT IS CURRENTLY SITTING IN DINNING PHELAN EATING BREAKFAST. LABS & VITALS REVIEWED. SHIFT ASSESSMENT COMPLETED. WILL CONTINUE TO MONITOR.
[2019-11-14 19:15] VITALS: BP 108/64
--- NOTE | 2019-11-15 03:26 | NUR ---
Assumed care of pt @ 1900. Pt calm, cooperative but isolative this shift. Pt took meds whole without difficulty. VSWNL. Pt ambulates halls ad luther with steady gait. No behaviors noted. Currently resting in bed with eyes closed. Will continue to monitor per protocol.
[2019-11-15 07:20] VITALS: BP 114/64
--- NOTE | 2019-11-15 15:07 | NUR ---
Pt's guardianship hearing is not until January 17, 2020. It was discussed in tx team that is too long for pt to be on the unit; her moods and sense of humor has changed. The psych doctor asked SW to contact the [facility]'s office because they know pt well; he is hoping they can assist in moving her hearing up. SW contacted the [facility]'s office and asked for the [employer] Supp[employer]. She was told by the deputy he is out of office due to the holiday today. He said [employer] Supplier is normall in the office 7am-230pm. SW team will continue to follow pt during her stay on this unit.
--- NOTE | 2019-11-15 16:06 | NUR ---
ASSUMED PT CARE AT 0715. AMBULATES IN PHELAN W/O ASSIST. PT HAS FLAT AFFECT THOUGH VERY QUITE. SLEPT ON DINNING ROOM COUCH MOST OF THE DAY. TAKES MEDS WHOLE. WILL CONT POC.
[2019-11-15 19:50] VITALS: BP 108/60
--- NOTE | 2019-11-16 04:33 | NUR ---
Assumed care of pt @ 1900. Pt calm et cooperative. Pt took meds whole without difficulty. Pt ambulates halls ad luther with steady gait. VSWNL. Assessment done which reveals no abnormalities at present time. No behaviors noted this shift. Currently resting in bed with eyes closed. Will continue to monitor per protocol.
[2019-11-16 07:51] VITALS: BP 123/68
--- NOTE | 2019-11-16 08:31 | NUR ---
PT FINISHED EATING. PT TOOK MEDS WITHOUT ANY ISSUES. PT SITTING ON COUCH AFTER BREAKFAST. PT DENIES ANY GOALS. PT STATED SHE MAY TAKE A SHOWER TODAY, PT DIDN'T KNOW WHEN SHE HAD A SHOWER LAST. PT UP AD REESE. DENIES ANY PAIN. PT SEEMS TO KEEP TO HERSELF, WILL CONVERSATE WITH OTHERS WHEN APPROACHED.
--- NOTE | 2019-11-16 10:33 | NUR ---
REECE contacted the Information Security Officer's office in [facility] and asked to speak with Sheriff Nilson Gonzales. The deputy who answered the phone took her message; REECE requested a return call to the psych doctor. She said she would give him the message. SW team will continue to follow pt during her stay on this unit.
--- NOTE | 2019-11-16 13:12 | NUR ---
Date of Admission: 10/18/19 Date of Activity Therapy Assessment: 10/21/19 Activity Goal: Increase reality orientation and activity tolerance Initial Goal: 1 Group activity/day Weekly progress towards goal: On track Group participation level: Moderate when present Behaviors observed: Patient is quiet and reserved, often presenting with flattened affect. Patient has begun to isolate more frequently and display decreased energy- sleeping on couch when out in milieu. Plan: No change towards goal
--- NOTE | 2019-11-16 13:44 | NUR ---
PT PARTICIPATING IN GROUP AT THIS TIME, PAINTING.
--- NOTE | 2019-11-16 15:43 | NUR ---
REECE contacted Tonya Nye for an update on if pt's court date had been moved up. No answer. Maricruzt msg. REECE team will continue to follow pt during her stay on this unit.
[2019-11-16 20:19] VITALS: BP 107/69
--- NOTE | 2019-11-16 22:47 | NUR ---
Care assumed of patient at 1915: Patient sitting on her bed in her room at start of shift. Patient calm, pleasant and cooperative. Periods of confusion and forgetfulness observed. Such as asking for ice water after already provided, asking for medication after already provided. Otherwise alert and oriented x4. Denies SI/HI/AH/VH. No s/s of delusional or paranoia behaviors. Denies pain or discomfort. Declined HS snack. Took HS medication whole without difficulty. Patient interacting appropriately with staff and roomate. Patient resting quietly in bed at this time.
--- NOTE | 2019-11-17 07:30 | NUR ---
Assumed care of patient this am. Patient in good spirits, calm, and cooperative. Patient ambulates without assistance. Patient takes medications whole with thin fluids. Patient denies si/hi. Patients assessment shows clear breath sounds, active bowel sounds, and s1 s2 heard with auscultation. Patient tends to isolate in her room and lay down.
[2019-11-17 07:45] VITALS: BP 110/82
[2019-11-17 19:43] VITALS: BP 111/79
--- NOTE | 2019-11-18 04:31 | NUR ---
Assumed care of pt @ 1900. Pt calm et cooperative this shift. Pt watching TV in dayroom unitl almost lights out this shift. Ambulates halls ad luther with steady gait. Took meds whole without difficulty. VSWNL. Nurse assessment done with no abnormalities noted at present time. Currently resting in bed with eyes closed. Will continue to monitor per protocol.
[2019-11-18 07:48] VITALS: BP 110/74
--- NOTE | 2019-11-18 11:04 | NUR ---
REECE contacted pt's daughter Tonya who gave pt's mother Pricila's contact info of [phone], and cell [phone]. REECE contacted pt and did not receive an answer. REECE team will continue to follow pt during her stay on this unit.
--- NOTE | 2019-11-18 13:07 | NUR ---
ASSUMED CARE AT 0700 THIS MORNING. SHE IS ON THE UNIT FOR MEALS, MEDS. TOOK HER MEDICATIONS WITHOUT DIFFICULTY. SW APPROACHED THIS AFTER SCHOOL TUTOR STATING THE PT.'S HAIR IS MATTED AND DOES NOT LOOK CLEAN AND WANTED TO KNOW IF THE PT. HAS HAD A SHOWER RECENTLY. THE PATIENT IN FACT DID HAVE A SHOWER YESTERDAY BUT UNCERTAIN IF HER HAIR WAS WASHED. THIS AFTER SCHOOL TUTOR APPROACHED THE PATIENT WITH THE SAME PROPOSAL. SHE STATED, "I JUST HAD A SHOWER". I INFORMED THE AFTER SCHOOL TUTOR I WOULD HELP HER IF SHE SO DESIRED. SHE STATED SHE WOULD THINK ON THAT ONE.
--- NOTE | 2019-11-18 13:40 | NUR ---
Nutrition: pt continues on [facility] unit with major neurocognitive disorder and continues to eat very well, 75-100% most meals. Weights remain relatively stable. Continues on B12, folic acid supplements and weekly ergocalciferol, scheduled bowel regimen. Unable to locate recent BM documentation however. Continue as low nutrition risk.
--- NOTE | 2019-11-18 14:42 | NUR ---
REECE contacted Rob who said he has contacted his electric engine mechanic Cayetano Moore, and is now aware of the court date for pt on December 26 @ 1330. He said he will be taking over the guardianship process vs the state. REECE asked him if he thinks he or his gmother Pricila could take pt until court date simply to avoid her having to stay on this unit until then. He said he will check with Pricila but is not sure that is an option. REECE team will continue to follow pt during her stay on this unit.
[2019-11-18 19:29] VITALS: BP 118/60
--- NOTE | 2019-11-19 00:56 | NUR ---
Care assumed of patient at 1915: Patient laying in bed at start of shift. Patient encouraged to go to dayroom for HS snack. Patient declined. Patient compliant with nursing assessment. Patient alert and oriented to person only. Patient feels that she is in a longterm and was confused when told she was at the hospital. Patient stated "Am I OK? Why am I in the hospital?" Patient was not able to state month, day of the week or year. Patient denies pain or discomfort. Denies SI/HI/AH/VH. No s/s of delusional or paranoia behaviors observed. Presents with blunted affect, poor eye contact. Took HS medication whole without difficulty. Declined HS snack. Patient able to go to sleep without difficulty and has been resting quietly.
[2019-11-19 09:05] VITALS: BP 119/84
--- NOTE | 2019-11-19 12:53 | NUR ---
ASSUMED CARE AT 0700 THIS MORNING. SHE CONTINUES TO BE SECLUSIVE IN HER ROOM. SHE PRESENTS WITH A FLAT, BLAND AFFECT. SHE CONTINUES TO BE CONFUSED, NEEDING REDIRECTION AND HAS NO INSITE. SHE IS UP AD REESE. TOOK HER MEDICATIONS WITHOUT DIFFICULTY. NEEDS REDIRECTION TO STAY OUT OF HER ROOM FOR GROUPS, BUT WILL COMPLY. SHE ALWAYS REPORTS "I'M TIRED". SHE LAYS DOWN IN HER BED BETWEEN ACTIVITIES.
--- NOTE | 2019-11-19 16:42 | NUR ---
REECE spoke to pt's mom Pricila who said that she travels a lot for work, and cannot provide pt the supervision she needs. In fact, soon she will be out of the state on business. She also confirmed that Rob works a lot also. She said she will talk with Rob and see if there is a way, but at this time she thinks there is too much time to the court date. She also said she would be unable to stop her from doing things in her home such as smoking. SW team will continue to follow pt during her stay on this unit.
[2019-11-19 19:20] VITALS: BP 123/81
--- NOTE | 2019-11-19 23:21 | NUR ---
Care assumed of patient at 1915: Patient seated in dayroom at start of shift watching TV. Patient did go lay in her bed during shift change. Patient easily aroused. Patient asked to come to dayroom for HS snack, medication and interaction. Patient calm, pleasant and cooperative. Patient joined staff and peers in the dayroom without difficulty. Ate 100% HS snack. Took HS medication whole without difficulty. Presents with blunted affect, relaxed mood. Interactive with staff during assessment. Denies SI/HI/AH/VH. No delusional or paranoia behaviors observed. Denies depression or anxiety. Alert and oriented to person. Otherwise confused and forgetful. Patient asked if she could go to bed around 9pm which was granted. Patient was not as isolative or withdrawn to her room this evening.
[2019-11-20 08:42] VITALS: BP 101/64
--- NOTE | 2019-11-20 08:50 | NUR ---
PT UP THIS AM AND HAD BREAKFAST AND WENT BACK TO BED. PT TOOK MEDS WITHOUT ANY ISSUES. PT STATED THAT THE SAID SHE HAD DEMENTIA. TOLD PT THAT THIS DIRECTOR PROCESS IMPROVEMENT WILL LOOK UP TO SEE IF SHE HAD THE PSYCHOSOCIAL TESTING DONE. PT CALM AND DENIES ANY ISSUES EXCEPT WHEN CAN SHE GO HOME.
--- NOTE | 2019-11-20 21:07 | NUR ---
Care assumed of patient at 1915: Patient sleeping in bed at start of shift. Patient awokened and asked to come to dayroom for group. Patient complied. Calm, pleasant and cooperative. Blunted affect. Discussed hobbies and coping mechanisms. When asked about her coping skills, patient smiled then stated sleeping or eating. Patient was not able to identify healthy coping mechanisms independently. Patient denies pain or discomfort. Alert and oriented to person and place, disoriented on current time and situation. Patient was social and interacted well with peers and staff during group. Patient did state her goal was to go to bed. Patient ate 100% HS snack. Took medications whole without difficulty, participated in group then was allowed to retire to bed. Denies SI/HI/AH/VH. No s/s of delusional or paranoia behaviors. Patient did speak of her work at [employer] and her accomplishments when she worked and appeared to be happy and proud of her work.
[2019-11-21 08:21] VITALS: BP 96/52
[2019-11-21 08:30] VITALS: BP 96/52
--- NOTE | 2019-11-21 09:00 | NUR ---
PT TALKING ON THE PHONE WITH FAMILY HER BOYFRIEND. PT UP AD REESE. PT DENIES ANY PAIN. PT STATED BM TODAY. PT DID TAKE HER STOOL SOFTNER THIS AM. PT STATED NO GOALS TODAY.
[2019-11-21 19:18] VITALS: BP 115/67
--- NOTE | 2019-11-22 00:41 | NUR ---
Care assumed of patient at 1915: Patient sleeping in bed at start of shift. Patient easily aroused. Patient calm, pleasant and cooperative. Presents with blunted affect. Declined HS snack. Took HS medication whole without difficulty. Denies pain or discomfort. Denies SI/HI/AH/VH. No s/s of delusional or paranoia behaviors. Patient stated that she was not able to sleep when HS medications were provided. Patient encouraged to get up, walk the halls, sit up for an hour, offered activities. Patient stated that she wanted to lay in bed until she could fall back to sleep and declined any diversional activities. Patient educated that she needs to get up and about during the day instead of sleeping so she can sleep without difficulty during the night. Patient nodded her head then continued to lay in bed. Denies depression or anxiety.
[2019-11-22 07:25] VITALS: BP 104/73
--- NOTE | 2019-11-22 11:29 | NUR ---
ATTENDING SCHEDULED ACTIVITIES WITH PROMPTING AND [employer] FREE TIME NAPPING ON COUCH IN DAYROOM OR WATCHING TV. CONSTRICTED AFFECT-VAGUE SUPERFICAL RESPONSES. DENIES C/O PAIN/DISCOMFORT. GAIT STEADY WITHOUT ASSISITVE DEVICES. APPETITE GOOD-FEEDS SELF AND INDEPENDENT IN ADL'S.
--- NOTE | 2019-11-22 17:49 | NUR ---
REECE sent referrals for pt on Medicaid pending status to [facility] near her home in [facility]. REECE team will continue to follow pt during her stay on this unit.
[2019-11-22 20:11] VITALS: BP 120/74
--- NOTE | 2019-11-22 21:05 | NUR ---
Care assumed of patient at 1915: Patient resting in bed at start of shift. Easily aroused. Calm, pleasant and cooperative. Presents with blunted affect. Denies depression or anxiety. Denies SI/HI/AH/VH. Withdrawn and isolative to her room. Declined HS snack. Took HS medication whole without difficulty. Patient interactive and respectful with nurse. No s/s of delusional or paranoia behaviors. Alert and oriented to person and place. Disoriented to location and situation. Patient denies any concerns or frustrations this evening. Reports that she is tired and is "just ready for bed". Patient resting quietly in bed at this time.
[2019-11-23 06:18] LABS: HEMATOCRIT 39.1 % (37.0-47.0); HEMOGLOBIN 13.2 gm/dL (12.0-15.0); MCH 29.9 pg (26.0-34.0); MCHC 33.9 g/dL (28.0-37.0); MCV 88.2 fL (80.0-100.0); RBC 4.43 mil/uL (4.20-5.00); RDW 13.3 % (10.5-14.5); WBC 5.1 thou/uL (4.0-11.0)
[2019-11-23 06:28] LABS: CREATININE 0.6 mg/dL (0.6-1.0); MAGNESIUM 2.1 mg/dL (1.8-2.4); POTASSIUM 3.8 mmol/L (3.5-5.1)
[2019-11-23 09:06] VITALS: BP 109/59
--- NOTE | 2019-11-23 13:14 | NUR ---
ASSUMED CARE AT 0700 THIS MORNING. PT. ON THE UNIT MOST OF THE MORNING. SHE ATTENDED MORNING MEETING AND TOOK HER MEDICATIONS WITHOUT DIFFICULTY. A LADY FROM [facility] HERE TO SPEAK WITH THE PT. AND THE [employer] REPAIRMAN TODAY. SHE DID LOOK FOR REASONS TO RETURN TO HER ROOM AND NOT BE ON THE UNIT, BUT THESE WERE NOT GRANTED BY THE STAFF SHE IS ON ROOM LOCKOUT FOR GROUPS AND MEALS. SHE HAS A VERY FLAT AFFECT AND MOOD.
--- NOTE | 2019-11-23 14:49 | NUR ---
Courtney with [facility] visited with pt. She said that she is happy to accept pt to her facility after pt's guardianship hearing on December 26. She said the issue she has is that pt at this time has no one to sign her in. REECE emailed Fatou Maya and Tonya Nye and asked if pt's son Rob Daniels or his consumer attorney has reached out to them. SW team will continue to follow pt during her stay.
[2019-11-23 19:15] VITALS: BP 100/64
--- NOTE | 2019-11-24 03:24 | NUR ---
ASSUMED CARE OF THIS PATIENT AT 1900 FOR [employer]. AFFECT BLUNTED. STAYED UP MOST OF THE EVENING IN DAYROOM. PLEASANT AND COOPERATIVE WITH ASSESSMENT PROCESS AND MEDS. NO APPARENT DISTRESS. NO C/O. WILL CONTINUE TO MONITOR
[2019-11-24 07:30] VITALS: BP 119/69
--- NOTE | 2019-11-24 07:30 | NUR ---
Assumed care of patient this am. Patient in the dining room sitting on the couch. Patient ambulates without assistance. Patient denies pain. Patient denies si/hi. Patient has a blunted affect. Patients assessment shows clear breath sounds, active bowel sounds, s1 s2 heard with auscultation. Patient participating in groups today.
[2019-11-24 19:42] VITALS: BP 107/52
--- NOTE | 2019-11-25 04:07 | NUR ---
ASSESSMENT: PT REMAIN REMAIN ALERT AND ORIENT TIMES THREE. VSS, AFEBRILE. SLEPT MOST OF THE NIGHT. NO COMPLAINTS DURING THE NIGHT. SLOW PROGRESS, WILL CONTINUE TO MONITOR.
[2019-11-25 05:38] VITALS: BP 107/52
[2019-11-25 07:55] VITALS: BP 108/77
--- NOTE | 2019-11-25 11:22 | NUR ---
Nutrition followup: Pt continues to eat very well, 100% of most meals and snacks. Vitamin D and B12 deficiency. On weekly ergocalciferol, B12 and folic acied. No new weight but overall stable trends. Awaiting guardianship hearing Continue as low risk.
--- NOTE | 2019-11-25 12:09 | NUR ---
Date of Admission: 10/18/19 Date of Activity Therapy Assessment: 10/21/19 Activity Goal: Increase reality orientation and activity tolerance Initial Goal: 1 Group activity/day Weekly progress towards goal: Achieving current goals Group participation level: Moderate Behaviors observed: Patient is present during all groups, though ocassionally requires frequent encouragement and reminders to attend. Patient has developed peer to peer relationships on unit. Her affect remains flat with ocassional spontaneous bursts of energy. Plan: Patient to attend all recreational therapy groups offered.
--- NOTE | 2019-11-25 13:07 | NUR ---
PATIENT WAS IN BED SLEEPING WHEN CARE ASSUMED, WOKE-UP FOR BREAKFAST, APPETITE GOOD, EATS 75%-100%. PATIENT TOOK ALL MEDICATION WHOLE WITHOUT DIFFICULTY. PATIENT IS ALERT AND ORIENTED X 3-4 ABLE TO MAKE NEED KNOWN. PATIENT AMBULATES WITH SLOW STEADY GAIT. AFFECT IS FLAT, MOOD IS BLUNTED. PATIENT DENIES SUICIDAL/HOMICIDAL IDEATION. SHE DENIES DEPRESSION/ANIETY. PATIENT REPORTS ADEQUATE SLEEP LAST NIGHT, HAD BOWEL MOVEMENT THIS MORNING. PATIENT DENIES HAVING PHYSICAL PAIN, NO SIGN OF ACUTE DISTRESS NOTED AT THIS TIME, WILL MONITIOR FOR SAFETY.
[2019-11-25 19:30] VITALS: BP 133/76
--- NOTE | 2019-11-26 01:56 | NUR ---
ASSUMED CARE OF PATIENT ON 11/25/19 AT APPROXIMATELY 1915, SHE IS ALERT AND ORIENTED X2, CALM AND COOPERATIVE, APPEARS WITH A BLANK AFFECT AT TIMES, BUT ALTERNATES TO BRIGHT. SHE DENIES SI HI. PATIENT IS PLEASANTLY CONFUSED, BUT FOLLOWS DIRECTIONS WHEN ASKED. SHE DENIES MEDICAL CONCERNS WITH NO S/S OF DISTRESS. NURSING WILL MAINTAIN ALL PRECAUTIONS TO ENSURE SAFETY AT ALL TIMES.
[2019-11-26 08:05] VITALS: BP 146/65
--- NOTE | 2019-11-26 18:00 | NUR ---
REECE saw Chalo and his mother visiting pt. She asked if they had any questions, and they did not. However, pt, Chalo, and his mom agreed that they would rather have a PA guardian then Rob be guardian due to Rob not being much involved with pt. SW team will continue to follow pt during her stay on this unit.
[2019-11-26 19:47] VITALS: BP 112/76
--- NOTE | 2019-11-27 02:58 | NUR ---
1840 RESUMMED CARE FROM DAY SHIFT, PATIENT WAS IN DAY ROOM INTERACTING WITH PATIENTS. PATIENT THEN WENT TO BED STATED SHE WAS TIRED, PATIENT TOOK MEDICATION WITHOUT INCIDENCE. WILL CONTINUE TO MONITOR PATIENT FOR SAFETY.
[2019-11-27 09:53] VITALS: BP 110/62
--- NOTE | 2019-11-27 14:14 | NUR ---
0700: Assumed care after report. Patient calmm and relaxed in the room. Pt had breakfast and took medications without any problem. She is calm and cooperative through out. Participated in group therapy. Denies SI/HI. Will continue with the plan of care.
[2019-11-27 19:37] VITALS: BP 129/64
--- NOTE | 2019-11-28 04:14 | NUR ---
Assumed care of pt @ 1900. Pt calm et cooperative this shift. Pt took meds whole without difficulty. VSWNL. Health assessment with no abnormalities found at present time. Pt ambulates halls ad luther with steady gait. Currently resting in bed with eyes closed. Will continue to monitor per protocol.
[2019-11-28 09:25] VITALS: BP 107/72
--- NOTE | 2019-11-28 12:27 | NUR ---
0715 ASSUMED CARE OF PATIENT. PATIENT IN BED AT THIS TIME. AT 0740 PATIENT TO DAYROOM WITH NO NEEDS VOICED. ASSESSMENT COMPLETED AT 0920. PATIENT IN ROOM RESTING. MEDICATION TAKEN WITHOUT DIFFICULTY. NO C/O PAIN, DENIES SI/HI AND AVH. LUNG SOUNDS CLEAR, A+O X 4. PATIENT CALM & COOPERATIVE. DENIES NEEDS AT THIS TIME.
--- NOTE | 2019-11-28 13:42 | NUR ---
0715 ASSUMED CARE OF PATIENT, PATIENT IN BED AT THIS TIME. 0740 PATIENT AMB TO DAYROOM WITH A STEADY GAIT TO WATCH TV AND WAIT FOR BREAKFAST. 0920 ASSESSMENT COMPLETED IN ROOM. PATIENT RESTING WITH EYES OPEN. A+O X4, LUNG SOUNDS CLEAR, NO C/O PAIN, DENIES SI/HI AND AVH. PATIENTS GOAL IS TO MAKE IT THROUGH THE DAY, NO CONCERNS VOICED. WILL CONTINUE TO MINITOR FOR ANY CHANGES IN CONDITION.
[2019-11-28 19:55] VITALS: BP 126/75
--- NOTE | 2019-11-29 04:24 | NUR ---
Assumed care of pt @ 1900. Pt calm et cooperative this shift. Pt took medications whole without difficulty. Ambulates the halls ad luther with steady gait. Was in dayroom watching the game with peers most of evening. bright affect et was socializing with peers throughout the game. VSWNL. No abnormalities found on health assessment at this time. Currently resting in bed with eyes closed. Will continue to monitor per protocol.
[2019-11-29 07:52] VITALS: BP 111/64
--- NOTE | 2019-11-29 15:22 | NUR ---
REECE received notice via email from Rachell Maya with [employer] that pt's son Rob Daniels's assistant county attorney has also filed a petition for guardianship. REECE informed Rachell and [employer] about pt saying she would prefer a P.A. Guardian vs. her son Rob having guardianship has he tends to not see her or get involved with her. SW team will continue to follow pt during her stay on this unit.
--- NOTE | 2019-11-29 16:07 | NUR ---
CALM AND COOPERATIVE THIS AM-COMPLIENT WITH TAKING MEDS SCHEDULED-REPORTS GOOD SLEEP AND APPETITE-ISIDRA C/O PAIN/DISCOMFORT. ORIENTED X3. GAIT STEADY WITHOUT ASSISTIVE DEVICES. DOES COMPLAIN ABOUT HAVING TO ATTEND GROUP "I WANT TO WATCH THE CHIEFS-GROUP IS BORING IV'E DONE THEM ALL"
[2019-11-29 20:19] VITALS: BP 118/85
--- NOTE | 2019-11-30 01:19 | NUR ---
ASSUMED CARE ON 11/29/19 @ 19:15, UP IN THE DAY ROOM, WATCHING TV AND SOCIALIZING WITH PEERS. TOOK MEDS WHOLE WITH WATER, A&OX3, HRRR, LUNGS CTA ALL [place], ABD N X 4 Q. ASLEEP AT THIS TIME, BED IN LOW POSITION, WILL CONTINUE TO MONITOR Q 12 MINUTES FOR PATIENT SAFETY.
--- NOTE | 2019-11-30 05:58 | NUR ---
SLEPT 7.6 HOURS
[2019-11-30 09:40] VITALS: BP 114/77
--- NOTE | 2019-11-30 15:39 | NUR ---
Date of Admission: 10/18/19 Date of Activity Therapy Assessment: 10/21/19 Activity Goal: Increase reality orientation and activity tolerance Initial Goal: 2 Group activities/day Weekly progress towards goal: On track Group participation level: Moderate Behaviors observed: Patient continues to stay on track to achieve goal of two groups per day. Her mood fluctuates from cheerful to frustrated at her length of stay. Patient continues to socialize with select peers in the milieu. Plan: No change towards goal
--- NOTE | 2019-11-30 17:18 | NUR ---
HAS CONTINUED TO NEED PROMPTING,QUEING TO ATTEND SCHEDULED ACTIVITIES-WAS RESISTIVE AND MILDLY ARGUMENTATIVE WHEN PROMPTED TO COME OUT OF ROOM FOR 1300 SW GROUP-STATING "I DON'T FEEL GOOD I THINK I'M GETTING SICK" GAIT STEADY WITHOUT ASSISITVE DEVICES. DENIES C/O PAIN/DISCOMFORT. DOES STATE BOWELS ARE MOVING AND HAD BM YESTERDAY AND HAD 2-3 LOOSE STOOLS DAY BEFORE SO ONLY WANTED TO TAKE 1 OF SENNA SCHEDULED DURING AM MED PASS. AFFECT IS CONSTRICTED-NO NOTED INTERACTION WITH PEER GROU-STRUCTURES FREE TIME LYING ON COUCH IN DAYROOM WATCHING TV
[2019-11-30 19:43] VITALS: BP 121/63
--- NOTE | 2019-12-01 04:03 | NUR ---
ASSUMED CARE OF PATIENT ON 11/30/19 AT APPROXIMATELY 1915, PATIENT IS ALERT AND ORIENTED X2-3 AT TIMES. SHE IS CALM AND COOPERATIVE, EASILY REDIRECTABLE. SHE HAS MINIMAL INTERACTION WITH THE MILIEU IN THE EVENING AND THEN GOING BACK TO HER ROOM TO LAY DOWN. SHE REPORTS 'IM GOOD.' SHE DENIES SI HI, FEELINGS OF DEPRESSION ET ANXIETY RESPONDING 'NO.' SHE DENIES MEDICAL CONCERNS, PAIN, NO S/S OF DISTRESS. NURSING WILL MAINTAIN ALL PRECAUTIONS TO ENSURE SAFETY AT ALL TIMES.
[2019-12-01 09:06] VITALS: BP 111/61
--- NOTE | 2019-12-01 11:58 | NUR ---
Followup: Continues to eat 100% of meals, need new wt to evaluate. Remains low nutrition risk
[2019-12-01 19:42] VITALS: BP 117/72
--- NOTE | 2019-12-01 20:27 | NUR ---
CALM AND COOPERATIVE THROUGHOUT SHIFT. DENIES PAIN OR ANY DISCOMFORT DURING AM ASSESSMENT. IS REQUESTING DECREASE IN DAILY LAXATIVE DOSE D/T LOOSE STOOL LAST PM. CONSTRICTED AFFECT. MINIMAL INTERACTION WITH PEERS-SOME LAUGHING DURING INTERACTION WITH STAFF
--- NOTE | 2019-12-02 02:18 | NUR ---
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 SEATED IN DAYROOM WITH PEERS, MINIMAL INTERACTION. PLEASANT AND COOPERATIVE WITH ASSESSMENT PROCESS AND MEDS. MINIMAL PARTICIPATION IN ASSESSMENT. NO C/O. NO APPARENT DISTRESS. WILL CONTINUE TO MONITOR
--- NOTE | 2019-12-02 09:16 | NUR ---
ASSUMED CARE AT 0700 THIS MORNING. PT. IN BED, GOT UP FOR MEALS. PLEASANT AND COOPERATIVE WITH STAFF, UPON APPROACH ONLY. DOES NOT INTERACT WITH PEERS. TOOK ALL HER MEDICATIONS WITHOUT DIFFICULTY. CONTINUES ON ROOM LOCK OUT FOR MEALS AND GROUPS SHE WILL NOT LEAVE HER ROOM IF NOT ON ROOM LOCK OUT. NO ACTING OUT BEHAVIORS NOTED. DENIES SI/HI AND AVH AT THIS WRITING.
[2019-12-02 09:23] VITALS: BP 110/61
[2019-12-02 19:40] VITALS: BP 99/73
--- NOTE | 2019-12-03 02:28 | NUR ---
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 PLEASANT AND COOPERATIVE WITH ASSESSMENT PROCESS. TOOK PO MEDS WITHOUT INCEDENT. SOON AFTER, WENT TO BED AND STAYED IN ROOM. NO APPARENT DISTRESS. NO C/O. WILL CONTINUE TO MONITOR
--- NOTE | 2019-12-03 09:00 | NUR ---
Assumed care of patient this am. Patient in her room in bed resting. Patient ambulates with out assistance. Patient takes medications whole with thin fluids. Patient denies pain. Patient denies hi/si. Patients assessment shows clear breath sounds, active bowel sounds, and s1 s2 heard with auscultation. Will continue to monitor.
[2019-12-03 09:50] VITALS: BP 105/54
--- NOTE | 2019-12-03 13:36 | NUR ---
REECE spoke with pt who said she prefers [facility] since it is so close to her home. REECE contacted Janet with [facility] to follow-up on referral she sent last week. REECE team will continue to follow pt during her stay.
[2019-12-03 14:18] LABS: ABSOLUTE NEUTROPHILS 3.2 thou/uL (1.4-8.2); BASOPHILS 0.7 % (0.0-2.0); EOSINOPHILS 1.2 % (0.0-3.0); HEMATOCRIT 39.5 % (37.0-47.0); HEMOGLOBIN 13.2 gm/dL (12.0-15.0); LYMPHOCYTES 29.6 % (24.0-44.0); MCH 29.5 pg (26.0-34.0); MCHC 33.5 g/dL (28.0-37.0); MCV 88.2 fL (80.0-100.0); MONOCYTES 5.1 % (1.0-8.0); PLATELET COUNT 206 thou/uL (150-400); POLYS 63.4 % (36.0-66.0); RBC 4.48 mil/uL (4.20-5.00); RDW 13.8 % (10.5-14.5); WBC 5.1 thou/uL (4.0-11.0)
[2019-12-03 14:30] LABS: CALCIUM 9.1 mg/dL (8.5-10.1); CREATININE 0.7 mg/dL (0.6-1.0); POTASSIUM 3.9 mmol/L (3.5-5.1)
[2019-12-03 19:30] VITALS: BP 124/75
--- NOTE | 2019-12-04 01:31 | NUR ---
ASSUMED CARE ON 12/03/19 @ 19:15, SITTING IN DAY ROOM ON THE COUCH WATCHING TV WITH PEERS. COOPERATIVE AND PLEASANT WITH INTRODUCTION AND ASSESSMENT. HEART RRR, S1S2 NOTED, LUNGS SOUNDS CLEAR BILAT, ABD N X 4Q, REPORTS LOOSE BM TODAY. TOOK MEDS WHOLE WITH THIN WATER. NOTED TO BE A&O X 3. AMBULATES INDEPENDENTLY, UP AD REESE. CONTNENT OF B&B. DENIES PAIN. IN BED AT THIS WRITING, BED IN LOW POSITION, WILL CONTINUE ROUNDING Q 12 MINUTES FOR PATIENT SAFETY.
--- NOTE | 2019-12-04 05:29 | NUR ---
SLEPT 8.8 HOURS
[2019-12-04 09:12] VITALS: BP 125/69
--- NOTE | 2019-12-04 13:44 | NUR ---
PATIENT HAS BEEN UP AND OUT ON THE UNIT, AMBULATE WITH STEADY GAIT. PATIENT IS ALERT, AND ORINETED X 3-4, ABLE TO VOICE NEED. PATIENT TOOK ALL MEDICATIONS WHOLE WITHOUT DIFFICULTY. PATIENT IS EATING MEALS, AND DRINKING FLUID WELL. PATIENT IS CALM, COOPERATIVE WITH CARE. SHE DENIES SUICIDAL/HOMICIDAL IDEATION. PATIENT DENIES AUDITORY/VISUAL HALLUCINATIOON. AFFECT IS FLAT, MOOD IS DEPRESSED, PATIENT DENIES HAVING PHYSICAL PAIN. LUNGS CLEAR TO AUSCULTAION IN ALL LOBE, BE+X 4, ABD SOFT, NON-TENDER TO TOUCH. NO AGITATION OR AGGRESSIVE BEHAVIOR NOTED, NO SIGN OF ACUTE DISTRESS NOTED AT THIS TIME, WILL MONITOR FOR SAFETY.
[2019-12-04 20:54] VITALS: BP 114/75
--- NOTE | 2019-12-04 23:08 | NUR ---
ASSUMED CARE OF PATIENT AT APPROXIMATELY 1915, SHE IS OBSERVED IN THEY DAY ROOM INTERACTING WITH SELECT PATIENTS. SHE APPEARS WITH A BLUNTED PERPLEXED AFFECT, SHE FOLLOWS DIRECTIONS WELL AND CAN MAKE NEEDS KNOWN WITH NO ISSUES. SHE TAKES MEDICATIONS WITH NO PROBLEMS. SHE REPORTS HER SLEEP AND APPETITE ARE GOOD STATING 'YEAH.' SHE DENIES SI HI HALLUCINATIONS, DEPRESSION, AND ANXIETY. THIS NURSE IS UNSURE IF PATIENT UNDERSTANDS REASON FOR ADMISSION ENTIRELY. SHE DENIES MEDICAL CONCERNS WITH NO S/S OF DISTRESS. NURSING WILL MAINTAIN ALL PRECAUTIONS TO ENSURE SAFETY AT ALL TIMES.
[2019-12-05 07:38] VITALS: BP 117/73
--- NOTE | 2019-12-05 12:34 | NUR ---
Date of Admission: 10/18/19 Date of Activity Therapy Assessment:10/21/19 Activity Goal: Increase reality orientation and activity tolerance Initial Goal:Two groups per day Weekly progress towards goal: On track Group participation level: Full participation Behaviors observed:Full participation in groups throughout the week, although pt's participation became passive over the weekend. Pt has been engaged and interactive in groups. Pt has had a bright and cheerful affect. Plan: No change towards goal
--- NOTE | 2019-12-05 18:11 | NUR ---
0715 ASSUMED CARE OF PATIENT. PATIENT IN DAYROOM WATCHING TV. 0820 MEDICATION GIVEN WHOLE WITHOUT DIFFICULTY. PATIENT DENIES PAIN, DENIES SI/HI AND AUDIO AND VISUAL HALLUCINATIONS. PATIENT BACK TO ROOM AFTER BREAKFAST, STATES "I DID NOT SLEEP LASTNIGHT AND WILL GO TAKE A NAP". GOAL TODAY IS TO SLEEP, CONCERN NONE VOICED. PATIENT CALM COOPERATIVE.
[2019-12-05 19:56] VITALS: BP 135/89
--- NOTE | 2019-12-05 21:39 | NUR ---
ASSUMED CARE AT 1915, PATIENT IS ALERT AND ORIENTED X1-2, SHE IS CALM AND COOPERATIVE WITH STAFF AND OTHER PATIENTS. SHE APPEARS WITH A BLANK AFFECT MOST TIMES, BUT WILL BECOME EXPANSIVE AND EUTHYMIC PERIODICALLY. SHE FOLLOWS REDIRECTION WELL. SHE REPORTED TO THIS NURSE SHE WAS CONCERNED ABOUT NOT SLEEPING AGAIN, THIS NURSE AND PATIENT DISCUSSED SLEEP HYGIENE FOR WHICH PATIENT RETURNED DEMONSTRATION EXTREMELY LIMITEDLY. SHE DID REPORT SHE IS ENTHUSIASTIC FOR DISCHARGE. SHE DENIES SI HI, DEPRESSION, ANXIETY, AND HALLUCINATIONS. SHE DENIES MEDICAL CONCERSN WITH NO S/S OF DISTRESS. NURSING WILL MAINTAIN ALL PRECAUTIONS TO ENSURE SAFETY AT ALL TIMES.
--- NOTE | 2019-12-06 02:08 | NUR ---
PATIENT WOKE UP AND CAME OUT TO THE DINING ROOM FOR A CUP OF ICE WATER. SHE SAT ON COUCH. SHE STATES SHE IS NOT ABLE TO SLEEP. WHEN ASKED WHY SHE THINKS SHE CAN'T SHE STATES SHE IS ANXIOUS ABOUT THE UPCOMING COURTDATE (12/26) AND IS WANTING TO GO HOME. SHE DENIES SLEEPING THRU THE DAY. SHE IS PLEASANT AND COOPERATIVE. OLANZAPINE 5MG PO GIVEN AND PATIENT WALKED BACK TO ROOM TO LAY DOWN AND TRY AND SLEEP SOME MORE. CONTINUING TO MONITOR.
--- NOTE | 2019-12-06 06:27 | NUR ---
0620 PO Protonix given as scheduled. Pt. took pills whole and with thin liquids. No choking or coughing noted after swallowing.
--- NOTE | 2019-12-06 07:30 | NUR ---
Assumed care of patient this am. Patient isolative this am. Patients affect is flat. Patient denies pain. Patient denies hi/si. Patient ambulates without assistance. Patient takes medications whole with fluids. Patients assessment shows clear breath sounds, active bowel sounds, and s1 s2 heard with auscultation.
[2019-12-06 09:06] VITALS: BP 99/57
--- NOTE | 2019-12-06 14:48 | NUR ---
REECE spoke with Janet with [facility] who asked REECE to fax another referral for pt. REECE faxed referral for pt. REECE team will continue to follow pt during her stay on this unit.
[2019-12-06 20:15] VITALS: BP 102/77
--- NOTE | 2019-12-06 23:59 | NUR ---
Care assumed of patient at 1915: Patient seated in dayroom at start of shift. Interacting appropriately with staff and peers. Does not appear blunted or flat this evening. Patient smiling, waving, joking appropriately. Alert and oriented x4. Organized, goal directed thoughts. Denies SI/HI/AH/VH. No s/s of delusional or paranoia behaviors. Denies pain or discomfort. Denies anxiety or depression. Took HS medication whole without difficulty. Ate 100% HS snack. Patient calm, pleasant and cooperative. Patient reports that she has been having difficulty sleeping and wanted to ensure nurse was providing HS Trazodone. Which was provided. Patient able to retire to bed at a reasonable hour and has been resting quietly.
[2019-12-07 07:35] VITALS: BP 102/65
--- NOTE | 2019-12-07 19:36 | NUR ---
[facility] WITH PEERS AND WATCHING TV-ATTENDING SCHEDULED GROUPS. SLIGHTLY MORE ANIMATED FACIAL EXPRESSION. DENIES SI/SH/HI. NO NOTED OR REPORTED PSYCHOSIS. DENIES ACUTE ANXIETY AND DESCRIBES HER MOOD "GOOD" GAIT STEADY
[2019-12-07 20:00] VITALS: BP 114/77
--- NOTE | 2019-12-08 02:29 | NUR ---
ASSUMED CARE OF THIS PATIENT A 1900 FOR OVERNIGHT BABYSITTER. SHE SPENT THE EVENING IN DAYROOM INTERACTING WITH PEERS AND STAFF. JOKING WITH STAFF ON APPROACH. PLEASANT AND COOPERATIVE WITH ASSESSMENT PROCESS AND MEDS. NO C/O. NO APPARENT DISTRESS. STATES HER STOOLS HAVE STARTED TO BE LOOSE. YOLANDA HELD THIS EVENING. WILL CONTINUE TO MONITOR
[2019-12-08 09:08] VITALS: BP 97/48
--- NOTE | 2019-12-08 10:49 | NUR ---
Nutrition followup: extended stay on [facility] unit. consistently eating 100% of meals. Wt is up 10 lb since admit. BMI 28. Low nutrition risk.
--- NOTE | 2019-12-08 12:08 | NUR ---
REECE received a msg from [facility] that they cannot accept pt because they are too full. REECE provided pt an update who said she understood. She asked REECE to try to find somewhere in [place] or [place] that she can go. SW team will continue to follow pt during her stay on this unit.
[2019-12-08 19:24] VITALS: BP 131/80
--- NOTE | 2019-12-09 03:45 | NUR ---
Assumed care of pt @ 1900. Pt calm et cooperative with pleasant demeanor this shift. Denies SI/HI. Ambulates halls ad luther with steady gait. Took medications whole without difficulty. VSWNL. Health assessment with no abnormalities found at present time. Pt socialized with peers in dayroom at beginning of shift. Pt was given PRN Ativan for anxiety. Currently resting in bed with eyes closed. Will continue to monitor per protocol.
--- NOTE | 2019-12-09 08:00 | NUR ---
Assumed care of patient this am. Patient in her room in bed. Patient easily aroused. Patient denies pain. Patient denies hi/si. Patient is calm and adheres to medication regimen. Patient isolates to her room when not on lockout. Patients assesment shows clear breath sounds, active bowel sounds, and s1 s2 heard with auscultation.
[2019-12-09 13:16] VITALS: BP 113/71
[2019-12-09 19:30] VITALS: BP 124/83
--- NOTE | 2019-12-10 01:10 | NUR ---
ASSUMED CARE ON 12/09/19 @ 19:15, SEATED IN THE DAY ROOM ON A COUCH, WATCHING TV AND SOCIALIZING WITH PEERS. PLEASANT AFFECT NOTED. COOPERATES WITH ASSESSMENT AND IS NOTED TO BE ALERT AND ORIENTED X 4, REPORTS WORRY AND ANXIETY ABOUT WHY SHE IS STILL IN THE HOSPITAL EVEN THOUGH SHE IS DOING BETTER. DENIES SI, HI AH, VH. DENIES PAIN, HRRR, S1S2 NOTED. LUNGS CTA, ABD SOUNDS NOTED. PATIENT REPORTS A MEDIUM SIZED BM OF MEDIUM CONSISTENCY TAKES P.O. MEDS WHOLE WITH WATER. COURT DATE IS SCHEDULED FOR DECEMBER 26. WILL CONTINUE TO MONITOR Q 12 MINUTES FOR PATIENT SAFETY.
--- NOTE | 2019-12-10 06:02 | NUR ---
SLEPT 7.8 HOURS OVERNIGHT
[2019-12-10 08:42] VITALS: BP 113/71
--- NOTE | 2019-12-10 18:09 | NUR ---
1810 RESUMMED CARE FROM OVERNIGHT SHIFT AT 0646, PATIENT IN ROOM LYING QUIET. PATIENT IS ENCOURAGED TO STAY UP AND NOTT LIE IN BED ALL THE TIME, PATIENT ATE BREAKFAST AND TOOK MEDICATION WITHOUT INCIDENCE. PATIENT PARTICIPATED IN GROUPS AND IS COOPERATIVE CALM. PATIENT DENIES ANY SI/HI OR AH AT PRESENT, WILL CONTINUE TO MONITOR PATIENT FOR BEHAVIORS AND SAFETY.
[2019-12-10 19:15] VITALS: BP 105/59
--- NOTE | 2019-12-11 01:52 | NUR ---
Care of patient assumed at 1915: Patient seated in dayroom at start of shift. Interacting well with staff and peers. Alert and oriented x4. Joking appropriately, smiling, appears happy. Calm, pleasant and cooperative. Denies SI/HI/AH/VH. No delusional behaviors observed. Denies pain or discomfort. Took HS medication without difficulty. Ate 100% HS snack. Patient goal directed regarding guardianship hearing and discharge. There was an incident this evening where there was another peer in a wrong room. This patient started to scream and yell loudly "Nurse, help, help" over and over. Anytime this other peer moves about, patient watches them and follows them as if she is paranoid about what could happen. Patient's room is closed so her belongings would not be pilfered with. Patient expressed concern for other peers which is why she "watches out". Patient was able to retire to bed at a reasonable hour and has been resting quietly since.
[2019-12-11 07:15] VITALS: BP 107/56
--- NOTE | 2019-12-11 10:32 | NUR ---
ASSUMED CARE AT 0700 THIS MORNING. PT. OUT OF HER ROOM FOR MEALS, EATING WELL. SHE IS VERY COOPERATIVE WITH STAFF/PEERS. SHE TOOK HER MEDICATIONS WITHOUT DIFFICULTY. SHE HAS A BRIGHT AFFECT AND BASILIO DISPOSITION. SHE IS VERY HELPFUL WITH STAFF.
[2019-12-11 21:02] VITALS: BP 119/80
--- NOTE | 2019-12-11 23:35 | NUR ---
Care assumed of patient at 1915: Patient seated in the dayroom watching TV at start of shift. Interacting well with staff and peers. Calm, pleasant and cooperative. Alert and oriented x3, forgetful on current date. Patient denies pain or discomfort. Denies SI/HI/AH/VH. No s/s of delusional or paranoia behaviors. No aggression shown. Presents with bright affect, smiling, laughing, joking appropriately. Ate 100% HS snack. Took HS medication whole without difficulty. Patient hopeful about court date and pending discharge. Patient retired to bed at a reasonable hour and was able to fall asleep without difficulty. Patient resting quietly at this time.
[2019-12-12 05:47] LABS: ABSOLUTE NEUTROPHILS 2.6 thou/uL (1.4-8.2); BASOPHILS 0.2 % (0.0-2.0); EOSINOPHILS 1.9 % (0.0-3.0); HEMATOCRIT 37.4 % (37.0-47.0); HEMOGLOBIN 12.5 gm/dL (12.0-15.0); LYMPHOCYTES 39.1 % (24.0-44.0); MCH 29.9 pg (26.0-34.0); MCHC 33.5 g/dL (28.0-37.0); MCV 89.2 fL (80.0-100.0); PLATELET COUNT 200 thou/uL (150-400); POLYS 52.8 % (36.0-66.0); RDW 13.2 % (10.5-14.5); WBC 4.8 thou/uL (4.0-11.0)
[2019-12-12 06:00] LABS: ALBUMIN 3.3 g/dL (3.4-5.0); CALCIUM 9.1 mg/dL (8.5-10.1); CREATININE 0.6 mg/dL (0.6-1.0); POTASSIUM 3.9 mmol/L (3.5-5.1); TOTAL BILIRUBIN 0.5 mg/dL (<0.1-1.0); TOTAL PROTEIN 6.9 g/dL (6.4-8.2)
[2019-12-12 07:28] VITALS: BP 99/54
--- NOTE | 2019-12-12 11:26 | NUR ---
ASSUMED CARE APPROX 08:00. PATIENT IN DAY ROOM, ATE BREAKFAST. WENT TO ROOM APPROX 11:00 TO LIE DOWN AND REST. DENIES THOUGHTS OF HARMING SELF OR OTHERS. PATIENT EXHIBITING APPROPRIATE BEHAVIOR. ORIENTED TO SELF AND SITUATION ONLY. AMBULATES WITH STEADY, BALANCED GAIT. REPORT GIVEN TO LUIS HAIRSTON AT 11:25.
--- NOTE | 2019-12-12 13:48 | NUR ---
Assumed care of patient from previous RN at approximately 11am. Patient in good spirits. Normal affect. Patient denies hi/si. Patient denies pain. Patient ambulatory. Patient somewhat isolative. Patient takes medications whole with fluids. Patient participating in group session today.
[2019-12-12 20:20] VITALS: BP 136/87
--- NOTE | 2019-12-12 23:37 | NUR ---
Assumed care on 12/12/19 @ 19:15, sitting in the day room on a sofa watching tv and socializing with peers. Cooperated with assessment, hrrr, lungs cta, abd N x 4Q. Reports bm today 12/12. Noted to be instigating agitation amoung peers shouting in chant, we want snacks we want snacks. Took meds whole. Retired to bed @ 2200 when the tv turned off. Bed in low position, will continue to monitor q 12 minutes for patient safety.
[2019-12-13 08:45] VITALS: BP 106/56
--- NOTE | 2019-12-13 09:01 | NUR ---
ASSUMED CARE AT 0700 THIS MORNING. PT. HAS BRIGHT, CHEERFUL AFFECT SITTING ON THE UNIT. SHE WAS LAUGHING AND TALKING TO STAFF AND PEERS. SHE WAS ON THE UNIT FOR MEALS, GROUPS. SHE TOOK HER MEDICATIONS WITHOUT DIFFICULTIES.
--- NOTE | 2019-12-13 14:34 | NUR ---
REECE contacted [facility], one of pt's choices for referral, to inquire if they had openings. REECE spoke with [facility] who said they do not have assisted living. REECE faxed a referral to [facility]. REECE team will continue to follow pt during her stay on this unit.
[2019-12-13 19:30] VITALS: BP 112/75
--- NOTE | 2019-12-13 22:20 | NUR ---
Care assumed of patient at 1915: Patient lying in bed at start of shift. Patient easily aroused. Patient joined group in dayroom for socialization and snack. Calm, pleasant and cooperative. Alert and oriented to person and situation. Forgetful on current place and time. Smiling, joking, laughing appropriately with peers. Patient denies pain or discomfort. Denies SI/HI/AH/VH. No aggression, delusional or paranoia behaviors observed. Patient took HS medication whole without difficulty. Ate 100% HS snack. Patient interacting appropriately with staff and peers. Patient has been having difficulty sleeping this shift and appears restless at this time.
[2019-12-14 10:55] VITALS: BP 102/55
--- NOTE | 2019-12-14 10:58 | NUR ---
ASSUMED CARE AT 0700 THIS MORNING. PT. AWAKE, UP AND DRESSED ON THE UNIT. SHE IS WATCHING TV NEWS WITH PEERS. SHE IS SMILING, ALERT, AND INTERACTING WELL WITH STAFF AND PEERS. BRIGHT AFFECT. SHE TOOK HER MEDICATIONS WITHOUT DIFFICULTIES NOTED. IS HELPFUL TO STAFF AND/OR PEERS. ATTENDING GROUPS AND IS INTERACTING WITH THEM.
--- NOTE | 2019-12-14 14:04 | NUR ---
Weekly Rec Therapy Progress Note- Patient continues to participate in 2 recreational therapy groups per day. She has shown no behavioral change and continues to appropriately engage with peers in the milieu. No change to goals at this time.
[2019-12-14 19:48] VITALS: BP 112/57
--- NOTE | 2019-12-15 00:28 | NUR ---
Care assumed of patient at 1915: Patient seated on her bed at start of shift. Patient encouraged to come to dayroom for snack and socialization. Patient compliant. Patient alert and oriented to person and situation. Patient forgetful on current time and location. Patient cooperative with nursing assessment. Patient ate 100% HS snack. Took HS medication whole without difficulty. Patient noted to be more irritable and agitated this evening than previous nights. Patients asked to watch the news and staff was changing to channels to find the news. Patient started to yell at staff member stating that she always had to be in control and was possessive of the remote. Patient required re-direction to lower her voice and that patients are not allowed to have the remote. Patient stated she didn't like this staff member. One on one time was spent about how we don't have to like everyone but we do have to treat everyone with respect no matter where we are. Patient remained irritable and agitated but stated she understood. Discussed coping skill of removing self from the situation when possible and to take slow deep breaths instead of raising her voice and being disrespectful to others. Patient denies SI/HI/AH/VH. No s/s of delusional or paranoia behaviors. Denies pain or discomfort. Patient was able to retire to bed at a reasonable hour and has been resting quietly.
[2019-12-15 07:40] VITALS: BP 116/67
--- NOTE | 2019-12-15 07:49 | NUR ---
Nutrition follow up: Excellent PO intake continues. Pt almost here ~2 months. Eating essentially 100% of almost all meals. Meal average = 96% per last 14 meals. Also eating 100% of 2-3 daily snacks as well. Last BM unknown - none recorded recently, but she is on scheduled senna/docusate sodium BID. Continues on daily B12, folic acid, and weekly ergocalciferol. Wt still up +10# since admit. No new nutrition intervention needs. Low nutrition risk.
--- NOTE | 2019-12-15 08:22 | NUR ---
PT UP AD REESE THIS AM. PT IN GOOD MOOD. PT STATED SHE WANTED TO SEE A SHOW LAST NIGHT ON TV AND ONE OF THE AIDS TURNED THE CHANNEL DUE TO BEING INAPPROPRIATE. PT TOOK MEDS WITHOUT ANY ISSUES.
[2019-12-15 08:30] VITALS: BP 116/67
[2019-12-15 19:44] VITALS: BP 120/83
--- NOTE | 2019-12-15 23:47 | NUR ---
PATIENT HAS BEEN UP IN THE DINING ROOM TONIGHT WATCHING TV. SHE DID ASK TO CALL AND SPEAK WITH HER SON LUIS, WHICH SHE DID. SHE HAS BEEN PLEASANT AND COOPERATIVE. SHE STARTED ON HER INCREASED DOSE OF TRAZADONE 100MG. SHE IS HOPING THIS WILL HELP HER SLEEP TONIGHT. VSS. DENIES PAIN. SMILING AND PLEASANT. NO NEGATIVE BEHAVIORS. PATIENT IS IN BED AT THIS TIME AND APPEARS TO BE SLEEPING. WILL CONTINUE TO MONITOR.
--- NOTE | 2019-12-16 01:06 | NUR ---
PATIENT UP AT MIDNIGHT TO FILL HER CUP WITH ICE WATER. UNABLE TO SLEEP. SHE WENT BACK TO BED TO TRY AND FALL ASLEEP. ON ROUNDS AT 0100 PATIENT WAS LAYING IN BED AND STATES SHE CAN'T SLEEP. PART OF IT IS PATIENT'S ROOMMATE IS SNORING. TYLENOL 650MG PO AND OLANZAPINE 5MG PO GIVEN AT THIS TIME. PATIENT TRYING TO GO SLEEP NOW. WILL CONTINUE TO MONITOR.
--- NOTE | 2019-12-16 03:48 | NUR ---
PATIENT NOT ABLE TO SLEEP. SITTING UP ON SIDE OF BED RESTING. ENCOURAGED HER TO TRY AND LAY DOWN AND REST. WILL CONTINUE TO MONITOR
--- NOTE | 2019-12-16 04:45 | NUR ---
SPOKE WITH PATIENT THAT IS STILL WIDE AWAKE. SHE FEELS SHE IS UNABLE TO SLEEP D/T HER ROOM MATE SNORING. TOLD HER WE WILL SEE IF WE CAN FIND ANOTHER ROOM FOR HER ROOM MATE TODAY SOMETIME. EXPLAINED THAT MAY NEED TO ALSO TRY A FEW MORE NIGHTS ON THE TRAZADONE 100MG TO HELP HER BODY GET USED TO IT. SHE AGREED. PATIENT PLEASANT. SHE DID NOT SLEEP YESTERDAY DURING DAY SHE SAID. WILL SPEAK WITH NURSE DURING REPORT ABOUT MOVING ROOM MATE TO ROOM OF HER OWN.
[2019-12-16 09:09] VITALS: BP 108/61
--- NOTE | 2019-12-16 09:43 | NUR ---
ASSUMED CARE AT 0700 THIS MORNING. PT. UP, DRESSED FOR BREAKFAST. AFTER BREAKFAST SHE LAYED DOWN ON THE COUCH. SHE SAT UP ENOUGH TO TAKE HER MEDICATIONS WITHOUT DIFFICULTY. SHE IS SMILING, PLEASANT AND COOPERATIVE WITH STAFF AND PEERS. SHE ATTENDED GROUP AND PARTICIPATED.
[2019-12-16 19:36] VITALS: BP 108/67
[2019-12-17 01:00] VITALS: BP 108/67
--- NOTE | 2019-12-17 01:50 | NUR ---
Pt. in day room at start of shift and was ambulating freely and safely. Pt. swallowed whole meds with thin liquids. NO choking or coughing noted after swallowing. Pt. denies pain and no s/s of distress noted.
--- NOTE | 2019-12-17 09:04 | NUR ---
PT RESTING IN BED THIS AM. PT TOOK MEDS WITHOUT ANY ISSUSE. PT DID TAKE LAXATIVES THIS AM. PT DIDN'T WANT TO EAT BREAKFAST. PT LUNGS CLEAR.
[2019-12-17 09:28] VITALS: BP 100/45
--- NOTE | 2019-12-17 12:00 | NUR ---
PT OUT FOR LUNCH VISITING WITH OTHER PEERS. PT TALKATIVE AND CHEERFUL. NO ISSUES.
--- NOTE | 2019-12-17 16:12 | NUR ---
PT SITTING IN DINING ROOM. 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 PT STILL IN CHEERFUL MOOD.
[2019-12-17 19:53] VITALS: BP 150/96
--- NOTE | 2019-12-17 23:12 | NUR ---
Care assumed of patient at 1915: Patient seated in dayroom at start of shift. Watching TV program with another peer. Interacting appropriately with staff and peers. Alert and oriented to person and place. Confused on time and situation. Patient states that she is here because her neighbor Itz kept yelling at her because she shouldn't have dogs. Patient understands that she is currently waiting on guardianship hearing before she is able to be discharged. Patient happy, smiling, joking appropriately. Denies SI/HI/AH/VH. No aggression or agitation observed. Patient denies pain or discomfort. Took HS medication whole without difficulty. Ate 100% HS snack. Patient was able to retire to bed at a reasonable hour and appeared to be sleeping. Patient presented self to the nurses station around 2200 and asked if she had any "antipsychotic meds tucked around anywhere". Patient denied feeling anxious or agitated. Reported that she "just couldn't sleep". Nurse was in room collecting weight from bed, passing linens, and completing 12 minute checks. Patient appears to be sleeping and was not responding to name being called before and after making this request. Education provided on medication received and changes that have occurred with dosage. Patient reports that she was having difficulty with insomnia at home prior to admission. Patient appears to be sleeping at this time.
--- NOTE | 2019-12-18 01:20 | NUR ---
PT REPORTS RACING THOUGHTS AND ANXIETY, RELATED TO BEING HERE "FOR SO LONG, EMMA DONE MY TIME." PRN ZYPREXA GIVEN FOR ANXIETY.
[2019-12-18 06:17] VITALS: BP 103/73
[2019-12-18 08:18] VITALS: BP 103/73
--- NOTE | 2019-12-18 13:43 | NUR ---
0730 Sleeping in room without s/o distress. States, "I'm tired. I just want to sleep." when asked to get up. States she didn't sleep at all last night and her meds are being adjusted. When asked where she was she stated she was at an automobile auction. Could not state the time. Denies SI/HI. Breath sounds clear t/o, bilaterally equal. Reg HR auscultated. Color pink with brisk capillary refill and palpable peripheral pulses. Mouth dry. Voiding independently. Active bowel sounds over soft, rounded abdomen. When she did come out for breakfast she did have regular gait. 1345 Participating in groups without s/o distress.
[2019-12-18 20:35] VITALS: BP 122/70
--- NOTE | 2019-12-18 23:12 | NUR ---
Care assumed of patient at 1914: Patient seated in dayroom, watching TV at start of shift. Interacting well with peers and some staff. Patient remains irritable with one staff member. TV was changed from a crime show to a more appropriate show for the mileau. Patient agitated about this. Asking about an eval for when she leaves. Education provided on appropriate TV entertainment and reasoning behind some restrictions. Patient feels that she is getting "picked on" by certain staff member. Patient alert and oriented to person and place. Confused and disoriented on current time and situation. Patient still believes that she is having court due to her neighbor complaining about her dogs. Education provided on guardianship hearing and she simply stated "Oh, I didn't know that". Peers agreed on comedy show to watch which appeared to calm patient. Patient took HS medication whole without difficulty. Ate 100% HS snack. Denies SI/HI/AH/VH. Denies depression. Patient has been having difficulty sleeping over the last couple nights. Patient retired to bed around 2144. Patient has been not able to sleep. Patient now reporting increased anxiety. Stating she is "just ready to go home, I have been here too long". Requesting her antipsychotic medication. Reviewed HS medication with her of what she received. Patient asked if she had any medication to help her anxiety. Provided with PRN Olanzapine PO. Patient sitting on her bed at this time.
[2019-12-19 07:30] VITALS: BP 109/70
--- NOTE | 2019-12-19 09:17 | NUR ---
PT STILL RESTING IN BED THIS AM. PT DIDN'T WANT TO EAT BREAKFAST. PT DENIES ANY PAIN. PT REFUSED LAXATIVE THIS AM. PT TOOK MEDS WITHOUT ANY ISSUES. NO SIGNS OF IRRITABLITY AT THIS TIME.
[2019-12-19 19:39] VITALS: BP 150/69
--- NOTE | 2019-12-20 04:22 | NUR ---
Assumed care of patient this pm shift. Patient sitting in mileu watching tv and talking with other patients. Patient denies pain. Patient denies hi/si. Patients affect normal. Patient takes medications whole. Patient ambulates without assistance. Patients assessment shows clear breath sounds, active bowel sounds, and s1 s2 heard with auscultation.
[2019-12-20 07:38] VITALS: BP 106/51
--- NOTE | 2019-12-20 09:00 | NUR ---
Sw completed a chart review and pt is waiting patiently for her guardianship hearing.
--- NOTE | 2019-12-20 12:28 | NUR ---
REECE contacted [employer] and set up transportation for pt's court date on December 26; she will leave at 12pm to make her 1330 appearance. Trip # is [id number]. SW team will continue to follow pt during her stay on this unit.
--- NOTE | 2019-12-20 18:30 | NUR ---
0710 ASSUMED CARE OF PATIENT. PATIENT IN BED AT THIS TIME. 0800 ASKED PATIENT TO COME TO EAT BREAKFAST PATIEWNT REFUSED. ASKED AGAIN AND PATIENT UP AND TO DAYROOM AT 0810. ATE 100% OF BREAKFAST. MEDS TAKEN WITHOUT DIFFICULTY. NO C/O SI/HI/. PATIENTS GOAL FOR THE DAY IS TO GET THROUGH THE DAY THINKING POSITIVE. PATIENT PARTICIPATES IN GROUP. PATIENT CALM AND COOPERATIVE.
[2019-12-20 19:37] VITALS: BP 152/94
--- NOTE | 2019-12-20 23:12 | NUR ---
Care assumed of patient at 1915: Patient seated in dayroom at start of shift. Interacting well with staff and peers. Watching TV, conversational. Alert and oriented to person and place. Disoriented on current time and situation. Understands that she has court coming up but still believes that it is for an encounter she had with her neighbor about her dogs. Denies pain or discomfort. Denies SI/HI/AH/VH. No agitation or aggression observed. Patient was observed speaking with another peer about how the doctor told her she had to sell her house. Delusional thinking present. Unable to re-direct this train of thought. Denies depression or anxiety. Took HS medication whole without difficulty. Ate 100% HS snack. Patient was able to retire to bed at a reasonable hour and has been resting quietly since.
[2019-12-21 08:16] VITALS: BP 109/73
--- NOTE | 2019-12-21 12:04 | NUR ---
Lying in bed without s/o distress. Alert and orientated to person, place but not to time. Denies pain. Cooperative and calm. Compliant with assessment. Requesting toenails to be clipped sometime today. Breath sounds clear t/o, bilaterally equal. Reg HR auscultated. Color pink with brisk capillary refill and palpable peripheral pulses. Independent with voiding. Reports she had a BM this AM which was loose. Hypoactive bowel sounds over soft, rounded abdomen. Ambulates with regular, steady gait. Currently eating lunch without s/o distress. Conversant with staff and peers.
--- NOTE | 2019-12-21 15:22 | NUR ---
SW talked with pt and prepared her for her court hearing on Friday. She said she recently talked with her meter engineer, and mentioned her issues with Rob being her guardian. SW provided supportive listening. Pt appears to be getting along well with one of the newer pts on the unit. SW team will continue to follow pt during her stay on this unit.
[2019-12-21 19:30] VITALS: BP 117/77
--- NOTE | 2019-12-22 00:20 | NUR ---
Care assumed of patient at 1915: Patient seated in dayroom at start of shift. Patient alert and oriented to person and place. Patient unable to state current date. Patient also remembers that she has court on the 2nd but believes that it is due to an argument she had with a neighbor. Nurse mentioned court is for guardianship. Patient then started to talk about her children and a neighbor that "lives 4 houses down could do it, he would be good at it". Patient calm, pleasant and cooperative. Interacting well with staff and peers. Smiling, laughing, joking appropriately. Bright affect. Denies SI/HI/AH/VH. No s/s of delusional or paranoia behaviors observed. Denies pain or discomfort. Denies anxiety or depression. States that she is "just ready to go home". Ate 100% HS snack. Took HS medication without difficulty. Patient was able to retire to bed at a reasonable hour and has been resting quietly since.
[2019-12-22 09:18] VITALS: BP 95/49
--- NOTE | 2019-12-22 11:17 | NUR ---
Followup: continues to eat 100% of meals. Wts are up 11 lb since admit, BMI 28.1. Remains low nutrition risk
--- NOTE | 2019-12-22 15:40 | NUR ---
ASSUMED CARE TODAY AT 0700. PT. WAS IN BED. SHE DID NOT GET OUT OF BED FOR BREAKFAST. STAFF INFORMED HER SHE NEEDED TO GET UP FOR MORNING MEETING. SHE TOLD OTHER STAFF SHE WAS TOLD SHE COULD LAY IN BED THIS MORNING. STAFF INFORMED HER THAT THIS WAS UNTRUE. SHE DID GET UP THEN FOR GROUPS. SHE ATE LUNCH ON THE UNIT. DENIES SI/HI OR AVH TODAY. SHE TOOK HER MEDICATIONS WITHOUT DIFFICULTIES.
[2019-12-22 19:35] VITALS: BP 117/66
--- NOTE | 2019-12-23 04:14 | NUR ---
PATIENT WAS UP IN DAYROOM BEFORE GOING TO BED TONIGHT. SHE WAS LAUGHING AND VISITING WITH OTHER PATIENTS. SHE DENIES PAIN. SHE HAD BM TODAY. SHE TOOK HER MEDS WHOLE WITH WATER. SHE IS A/OX3 AND FORGETFUL AT TIMES. PATIENT HAS BEEN SLEEPING ALL NIGHT. BED IN LOW POSITION AND ROUTINE ROUNDS BEING DONE TO ASSESS STATUS AND SAFETY OF PATIENT.
[2019-12-23 08:36] VITALS: BP 113/56
--- NOTE | 2019-12-23 16:11 | NUR ---
ASSUMED CARE AT 0700 THIS MORNING. PT. WAS RESTING IN HER ROOM BUT DID GET UP FOR MEALS AND GROUPS. SHE TOOK MEDS WITHOUT DIFFICULTIES. SHE HAS BEEN INTERACTING WITH PEERS AND STAFF. DENIES SI/HI OR AVH TODAY.
[2019-12-23 20:00] VITALS: BP 101/56
[2019-12-23 20:30] VITALS: BP 101/56
--- NOTE | 2019-12-24 01:39 | NUR ---
PATIENT HAS BEEN APPROPRIATE TONIGHT. VISITS WITH 2 FEMALE PATIENTS IN DAYROOM. SHE HAS BEEN PLEASANT AND COOPERATIVE. A/0X 3. DENIES SI/HI/AVH. DENIES PAIN. PATIENT AMBULATES. PATIENT SLEEPING IN BED AT THIS TIME. WILL CONTINUE TO MONITOR.
[2019-12-24 09:30] VITALS: BP 101/47
--- NOTE | 2019-12-24 16:55 | NUR ---
PT ALERT AND ORIENTED TIMES FOUR. FAIR AFFECT. VSS. PT DENEIS SI/HI/AH/VH. PT UP AND OUT AROUND THE UINT INTERACTING WITH PEERS. PT ATTENED SOME GROUPS THIS SHIFT. PT TOLERATES MEDS AND MEALS. PT PROGRESSING TOWRADS POC GOALS. WAITING COURT DATE SOON.
[2019-12-24 21:32] VITALS: BP 110/77
[2019-12-24 21:58] VITALS: BP 110/77
--- NOTE | 2019-12-25 02:06 | NUR ---
Pt. is up ad luther with a slow and steady rate. Pt. is aware of court date in [facility] on 12/26. She voices no complaints and has no signs or symptoms of pain or distress.
[2019-12-25 09:06] VITALS: BP 95/58
--- NOTE | 2019-12-25 10:59 | NUR ---
1000 RESUMMED CARE FROM OVERNIGHT SHIFT, PATIENT WAS IN ROOM SLEEPING. I HAD TO WAKE PATIENT TO EAT BREAKFAST AND TAKE MEDICATION. PATIENT AFFECT CALM, COOPERATIVE PATIENT IS ANXIOUS TO GO TO COURT ON 12/27/19. PATIENT'S HAS BOWEL PRESENT LUNGS CLEAR, ABDOMEN SOFT DENIES SI/HI/AH/VH. PATIENT PARTICIPATES IN GROUPS WILL MONITOR PATIENT FOR SAFETY AND BEHAVIORS.
[2019-12-25 14:53] VITALS: BP 110/82
[2019-12-25 19:26] VITALS: BP 105/74
--- NOTE | 2019-12-25 21:54 | NUR ---
Assumed care of pt @ 1900. Pt calm et cooperative with pleasant demeanor this shift. Took medications whole without difficulty. Socialized with staff et peers in dayroom until HS. Denies SI/HI. No behaviors noted. Ambulates the halls ad luther with steady gait. VSWNL. Health assessment with no abnormalities noted at present time. Currently resting in bed with eyes closed. Will continue to monitor per protocol.
[2019-12-26 06:24] VITALS: BP 105/46
--- NOTE | 2019-12-26 17:59 | NUR ---
PATIENT SPENT MOST OF MORNING IN HER ROOM. STATED SHE DID NOT SLEEP WELL LAST NIGHT AND WANTED TO REST TODAY. REFUSED BREAKFAST THIS MORNING. OUT OF ROOM FOR LUNCH AND DINNER. PARTICIPATED IN GROUP. PATIENT WAS SECRETIVE WITH CONVERSATIONS WITH OTHER PATIENTS AFTER GROUP. STATED TO STAFF, "IF I HAD KNOWN I WASN'T GOING TO DISCHARGE HOME, I WOULDN'T HAVE BEEN SO GOOD." UP AD REESE WITH STEADY GAIT. SOCIAL WITH OTHER PATIENTS AND WATCHING TV AFTER DINNER.
[2019-12-26 19:35] VITALS: BP 111/84
--- NOTE | 2019-12-27 03:42 | NUR ---
ASSUMED PT CARE AROUND 1914. AXOX3. CALM AND COOPERATIVE WITH CARE. ALL MEDS AND PRN MED GIVEN PER MD ORDER. NO S/S ACUTE DISTREE NOTED OR REPORTED AT THIS TIME. WILL CONT TO MONITOR FOR ANY CHANGES IN CONDITION.
[2019-12-27 07:56] VITALS: BP 114/60
--- NOTE | 2019-12-27 09:29 | NUR ---
0700 ASSUMED CARE OF PATIENT. PATIENT SLEEPING IN BED AT THAT TIME. 0830 PATIENT ATE 100% OF BREAKFAST. DENIES PAIN, SI/HI/AH/VH. DOES STATE HAVING SOME ANXIETY AND DEPRESSION. PATIENT STATES " IM ANXIOUS ABOUT COURT TODAY, WORRIED WERE I MAY GO". "I WANT TO GO HOME AND HOPE MY CHIN STRAP SEWER CAN GET THAT FOR ME". PATIENT SAYS SHE ID A LITTLE DEPRESSED BUT STATES "THAT IS USUAL". PATIENTS STATES GOAL FOR TODAY IS "TO GET SPIFT UP AND SHOWERED FOR COURT" AND CONCERN IS TO WHERE SHE WILL BE GOING. PATIENT TOOK MEDS WHOLE WITHOUT DIFFICULTY. BACK TO ROOM TO REST. WILL CONTINUE TO MONITOR FOR BEHAVIORS.
--- NOTE | 2019-12-27 12:04 | NUR ---
AT THIS TIME PATIENT OFF UNIT ACCOMPANIED BY CORRIE HARO US TO TRANSPORT VEHICLE FOR COURT.
--- NOTE | 2019-12-27 18:41 | NUR ---
APPROX [address]. PRIOR TO PATIENT ARRIVING PATIENT'S SON CALLED REQUESTING TO DISCHARGE PATIENT. FORMS HAVE NOT BEEN RECIEVED FROM COURT FOR GUARDIANSHIP YET. NOTIFIED OF SONS REQUEST. PATIENT DENIES NEEDS. PATIENT OUT IN DAYROOM WATCHING TV.
[2019-12-27 19:47] VITALS: BP 116/82
--- NOTE | 2019-12-27 22:48 | NUR ---
Care assumed of patient at 1915: Patient seated in dayroom, watching TV with peers at start of shift. Patient alert and oriented to person and place. Confused and forgetful on current time and situation. Patient states that she is going home independently tomorrow. However, guardianship was granted to son earlier today. Unknown on the accuracy of this information. Calm, pleasant and cooperative. Smiling and cheerful. Denies pain or discomfort. Denies SI/HI/AH/VH. No delusional or paranoia behaviors observed. No aggression shown. Declined HS snack. Took HS medication whole without difficulty. Retired to bed at a reasonable hour and appears to be resting in bed.
[2019-12-28 08:53] VITALS: BP 108/49
--- NOTE | 2019-12-28 10:07 | NUR ---
1005 RESUMMED CARE FROM OVERNIGHT SHIFT THIS AM, PATIENT WAS IN ROOM SLEEPING AND I HAD TO ASK HER 3 TIMES TO GET UP TO EAT BREAKFAST. PATIENT FINALLY GOT UP ATE TOOK MEDICATION WITHOUT INCIDENCE. PATIENT STATES SHE DID NOT SLEEP WELL. PATIENT'S LUNGS CLEAR ABDOMEN SOFT AND ROUND, PATIENT DENIES SI/HI/AH/VH AT PRESENT. PATIENT NEEDS ENCOURAGEMENT TO NOT SLEEP SO MUCH AND PARTICIPATE IN TREATMENT. WILL CONTINUE TO MONITOR PATIENT FOR SAFETY AND BEHAVIORS.
--- NOTE | 2019-12-28 11:38 | NUR ---
REECE spoke with pt and Rob and Dr kincaid regarding pt's d/c on TR at 2pm. Rob will come in for a d/c meeting and pt will leve after that. Pt will be living in her own home with Chalo and some HH. Pt will recieve services with [facility] and Sw will make an appt with a PCP within 2 weeks of d/c. Reece reached out to [facility] [phone] and is waiting for a return call. Reece completed a handout for pt for d/c .
[2019-12-28 19:44] VITALS: BP 144/83
--- NOTE | 2019-12-28 20:37 | NUR ---
Care assumed of patient at 1915: Patient laying in bed at start of shift. Patient reports that she had a "panic attack" earlier in the evening. Patient denies anxiety or depression at this time. Alert and oriented to person and place. Disoriented to time and situation. Denies pain or discomfort. Calm, pleasant and cooperative. Patient came to the dayroom for HS snack and socialization. Patient interacting well with staff. Patient took HS medication crushed without difficulty. Ate 100% HS snack. Denies SI/HI/AH/VH. No delusional or paranoia behaviors present. Presents with bright affect, smiling. Patient currently watching TV in the dayroom.
[2019-12-29 08:42] VITALS: BP 103/66
--- NOTE | 2019-12-29 11:05 | NUR ---
REFUSED BREAKFAST THIS AM STATING WAS TIRED AND WANTED TO SLEEP LATE. SMILING AND HAPPY WHEN SPEAKING ABOUT PENDING DC FOR AM STATING "FINALLY I DIDN'T THINK THAT DAY WOULD EVER GET HERE"DENIES S/O PHYSICAL PAIN/DISCOMFORT. APPETITE GOOD. DENIES SI/SH/HI. GAIT STEADY WITHOUT ASSISITVE DEVICES. DOES REPORT SOME ANXIETY RATED A 5 ON 1-10 SCALE R/T DC BUT DOES RESPOND TO SUPPORT AND REASSURACE FROM NURSING.
--- NOTE | 2019-12-29 15:35 | NUR ---
Pt came to REECE upset and said that she found out her son Rob is selling her car. She called her mother Pricila in my office. No answer. She left a msg. She said she couldn't remember Chalo's number. SW team will continue to follow pt during her stay on this unit.
[2019-12-29 15:38] VITALS: BP 103/66
[2019-12-29 19:50] VITALS: BP 102/67
[2019-12-29 21:38] VITALS: BP 102/67
--- NOTE | 2019-12-29 22:52 | NUR ---
2200 RESUMMED CARE FROM DAY SHIFT, PATIENT SITTING IN DAY ROOM WATCHING TV. PATIENT EXCITED THAT SHE IS LEAVING TOMMOROW TO LIVE WITH SON. PATIENT LUNGS CLEAR ABDOMEN SOFT AND ROUND, BOWEL SOUNDS PRESENT. PATIENT DENIES SI/HI/AH/VH AT PRESENT PATIENT TOOK MEDICATION WITHOUT INCIDENCE. WILL CONTINUE TO MONITOR PATIENT FOR SAFETY AND BEHAVIORS.
[2019-12-30 07:52] VITALS: BP 100/55
--- NOTE | 2019-12-30 08:55 | NUR ---
ASSUMED CARE TODAY AT 0700. SHE WAS UP, DRESSED AND SITTING ON THE COUCH IN THE DINING ROOM. SHE WAS TALKING ABOUT LEAVING TODAY AT 1400. SHE IS VERY EXCITED. SHE WAS ASKED TO BRING HER BELONGINGS FROM HER ROOM UP TO THE NURSES STATION SO IT CAN BE INVENTORIED. SHE DID SO. DENIES SI/HI OR AVH TODAY. SHE IS INTERACTING WITH A COUPLE OF OTHER PEERS. SHE IS SMILING AND HAPPY. HER THOUGHTS ARE IN ORDER AND SHE HAS THOUGHT THIS OUT (HER DISCHARGE).
--- NOTE | 2019-12-30 11:12 | NUR ---
SW contacted [facility], and was told that pt's doctor is at [facility]. SW contacted [facility] at [phone] and talked with the receptionis. Pt's doctor is Dr. Gee. Pt must contact doctor's office when she gets home and complete an assessment via phone with a nurse; they will then make her an appt. SW asked if pt can do so in the hospital and she was advised that pt must be at home. REECE will review information during family meeting today. SW team will continue to follow pt during her stay on this unit.
[2019-12-30] MEDS ORDERED: VITAMIN D21250 MC1 PO (11:13)
[2019-12-30] MEDS ORDERED: CLARITIN10 M2 PO (11:13)
[2019-12-30] MEDS ORDERED: REQUIP 1 MG TABL1 M1 PO (11:13)
[2019-12-30] MEDS ORDERED: PROTONIX40 M1 PO (11:13)
[2019-12-30] MEDS ORDERED: TRAZODONE HCL100 MG PO (11:13)
[2019-12-30] MEDS ORDERED: FOLIC ACID1 MG PO (11:13)
[2019-12-30] MEDS ORDERED: B-12500 MCG PO (11:13)
[2019-12-30] MEDS ORDERED: LEXAPRO 10 MG T10 MG PO (11:13)
[2019-12-30] MEDS ORDERED: SENNA-TIME S T1 EACH PO (11:13)
[2019-12-30] MEDS ORDERED: FLONASE 0.05%50 MCG NASAL (11:13)
[2019-12-30] MEDS ORDERED: OLANZAPINE2.5 MG PO (11:13)
[2019-12-30] MEDS ORDERED: GABAPENTIN 100100 MG PO (11:13)
--- NOTE | 2019-12-30 16:03 | NUR ---
REECE D/C note REECE and Dr. Garnett met with pt, her son Rob, her bf Chalo. REECE gave Rob a handout with information on how to contact pt's PCP and how to enroll in services with [facility]. Dr. Garnett stressed the importance that Rob make several copies of his guardianship docs and also is involved in pt's care. Rob said he understood. REECE faxed discharge docs to [facility] and [facility]. REECE submitted these docs and the confirmation into pt's chart. No other needs for SW team to address at this time.
--- NOTE | 2019-12-31 20:19 | D ---
[facility] [place] [address] DISCHARGE SUMMARY Name: COLEMAN EDWARDS Room #: 52-B [facility] IN M.R.#: [id number] Admission: 10/18/19 Attend Phys: Raymon Garnett DO Discharge: 12/30/19 Date of : 56 Report #: [id number] THIS REPORT FOR: cc: ZAMZAM - Family physician unknown FAM - Family physician unknown Raymon Garnett DO ~ THIS REPORT FOR: //name// CC: Raymon WYMAN unknown DATE OF SERVICE: 12/30/2019 INPATIENT PSYCHIATRIC DISCHARGE SUMMARY ATTENDING PHYSICIAN: Raymon Garnett DO. USER EXPERIENCE MANAGER AT THE TIME OF DISCHARGE: Arpit Curry MD. DISCHARGE DIAGNOSES: Major neurocognitive disorder due to multiple etiologies, which would include Alzheimer disease and untreated long psychosis with behavioral disturbance, improved. MEDICAL COMORBIDITIES: As follows: Hypertension, borderline low on losartan, beta joanne with parameters; B12 deficiency and vitamin D deficiency, continue replacement; tobacco use disorder, nicotine patch tapered off, encouraged to maintain cessation on discharge; history of URI and COPD, resolved. DISCHARGE PLAN: The patient is discharging to her private residence with 24/7 care. The patient is now under [place] guardianship per her son, Mike. I spoke with her guardian and conservator. Mike has been advised the patient requires 24/7 care and supervision. DIET: Regular. ACTIVITY LEVEL: As tolerated. Encourage regular exercise, fresh air. DISCHARGE MEDICATIONS: As follows: Loratadine 10 mg p.o. daily for allergic rhinitis; gabapentin 200 mg p.o. at bedtime for pain and sleep; Lexapro 10 mg p.o. daily for depression; trazodone 200 mg p.o. at 1930 p.r.n. for sleep; olanzapine 2.5 mg p.o. at bedtime for psychosis, this patient has a history of schizophrenia; Requip 0.5 mg p.o. daily at 1700 for restless leg syndrome; Flonase 2 sprays each nostril daily for allergic rhinitis; senna docusate 2 tabs p.o. b.i.d., hold if diarrhea, for bowel motility; pantoprazole 40 mg p.o. daily at 0700 for GERD; cyanocobalamin 500 mcg p.o. daily for supplementation; folic acid 1 mg p.o. daily for supplementation; ergocalciferol 50,[address] [address] DISCHARGE SUMMARY Name: JERRYCOLEMAN Room #: 524B-B [facility] IN ..#: [id number] Admission: 10/18/19 Attend Phys: Raymon Garnett DO Discharge: 12/30/19 Date of : 56 Report #: [id number] Units p.o. weekly, Rx was given for #4. LABORATORY DATA: Significant during this admission are as follows: On 12/12, CBC was within normal limits. On 12/12, chemistries as well as within normal limits except for albumin of 3.3, ALT is 28, which is low, AST is 17. Other significant laboratories, vitamin D level absolutely low at 7.6. TSH 2.225. REASON FOR ADMISSION: Way back on 10/18 is as follows: A 58-year-old female transferred from [facility] due to the patient being overtly psychotic. Apparently, there was a hotline from [facility] and the patient was brought in for a welfare check. HOSPITAL COURSE: The patient was admitted to Geriatric Psychiatry Unit. The patient was treated with olanzapine and her psychosis cleared. I have known the patient from hospitalization in [facility] 5 years earlier. She has significant neurodegenerative picture. Neuropsych testing done around 11/17 confirmed dementia. The patient was not able to understand the covarrubias elements of the durable power of admitted attorneys for healthcare. Therefore, guardianship was filed for. Unfortunately, there was quite a prolonged period of 6-[address] could hear this case. During which time, the patient was fairly stable on the unit. My recommendation was for Memory Care placement; however, the court appointed guardian wants to do 24/7 care at her home at this juncture and that is her son. PHYSICAL EXAMINATION: VITAL SIGNS: Temperature 36.8, pulse 70, respirations 16, BP 100/55, O2 sat 96%. MUSCULOSKELETAL: Normal gait and station. MENTAL STATUS EXAMINATION: This is a well-developed, fairly nourished female appearing stated age. Attention intact. Concentration intact. Speech is normal rate, volume, tone. Thought process linear and goal directed. Thought content focused on discharge. No SI, no HI. No auditory, visual, or tactile hallucinations. Memory known to be impaired. Insight limited. Judgment limited. Fund of knowledge below average. PROGNOSIS: For this patient is guarded and will depend on both her efforts towards wellness as well as the quality of her care as she is definitely impaired adult. <ELECTRONICALLY SIGNED> By: Raymon Garnett DO 12/31/192018 19 33 Raymon Garnett DO /nt
== END 2019-12-30 14:25 | disposition home or self-care (01) | DRG 57 ==
LOC: SBH 14:21
PROVIDERS: Internal Medicine; Psychiatry & Neurology Psychiatry; ADMIT Psychiatry & Neurology Psychiatry
DX: G30.9 Alzheimer's disease, unspecified (principal); F01.51 Vascular dementia, unspecified severity, with behavioral disturbance; F29 Unspecified psychosis not due to a substance or known physiological condition; F02.80 Dementia in other diseases classified elsewhere, unspecified severity, without behavioral disturbance, psychotic disturbance, mood disturbance, and anxiety; I10 Essential (primary) hypertension; E53.8 Deficiency of other specified B group vitamins; E55.9 Vitamin D deficiency, unspecified; J44.9 Chronic obstructive pulmonary disease, unspecified; K21.9 Gastro-esophageal reflux disease without esophagitis; F31.9 Bipolar disorder, unspecified; G47.00 Insomnia, unspecified; F20.9 Schizophrenia, unspecified; Z82.49 Family history of ischemic heart disease and other diseases of the circulatory system; Z79.891 Long term (current) use of opiate analgesic; Z79.899 Other long term (current) drug therapy
CPT/HCPCS: 10880